=== PATIENT | female | born 1940 | race Caucasian/White ===

== ENCOUNTER 2017-10-01 06:12 | Inpatient (IN) | payer MEDICARE, OTHER ==
[~2017-10-01] VITALS: Ht 157.5 cm; Wt 79.0 kg
[2017-10-01] VITALS (18 sets, daily range): BP systolic 65–130; BP diastolic 22–71
[~2017-10-01 06:12] MED LIST: LABETALOL HCL200 MG PO; MAXZIDE-25 MG1 EACH PO; NORVASC5 MG PO; PREMARIN0.625 MG PO; TIROSINT50 MCG PO; ZOCOR20 MG PO
[2017-10-01 06:35] LABS: HEMATOCRIT 37.2 % (37.0-47.0); HEMOGLOBIN 12.1 gm/dL (12.0-15.0); MCH 27.3 pg (26.0-34.0); MCHC 32.7 g/dL (28.0-37.0); MCV 83.7 fL (80.0-100.0); MPV 9.3 fl. (7.2-11.1); RBC 4.44 mil/uL (4.20-5.00); RDW-CV 14.7 % (10.5-14.5); WBC 9.4 thou/uL (4.0-11.0)
[2017-10-01 06:47] LABS: CALCIUM 8.9 mg/dL (8.5-10.1); CREATININE 1.6 mg/dL (0.6-1.3); POTASSIUM 3.2 mmol/L (3.5-5.1)
[2017-10-01 14:02] LABS: BE -12.5 mmol/L (-2 to +3); HCO3 15.3 mmol/L (22.0-26.0); PCO2 42.5 mmHg (35.0-45.0); PO2 84.5 mmHg (75.0-100.0)
[2017-10-01 14:03] LABS: pH 7.174 (7.340-7.450)
[2017-10-01 14:14] LABS: HEMATOCRIT 27.8 % (37.0-47.0); HEMOGLOBIN 9.1 gm/dL (12.0-15.0); MCH 28.2 pg (26.0-34.0); MCHC 32.8 g/dL (28.0-37.0); MCV 86.1 fL (80.0-100.0); MPV 9.3 fl. (7.2-11.1); RBC 3.22 mil/uL (4.20-5.00); RDW-CV 15.2 % (10.5-14.5); WBC 5.1 thou/uL (4.0-11.0)
[2017-10-01 14:26] LABS: ALBUMIN 2.6 g/dL (3.4-5.0); CALCIUM 7.2 mg/dL (8.5-10.1); CREATININE 1.3 mg/dL (0.6-1.3); TOTAL BILIRUBIN 0.5 mg/dL (<0.1-1.0); TOTAL PROTEIN 4.1 g/dL (6.4-8.2)
--- NOTE | 2017-10-01 15:59 | EKG ---
[place] [address] ELECTROCARDIOGRAM REPORT Name: CLYDE BOB Room: [address] ADM IN .R.#: [id number] Admission: 10/01/17 Attend Phys: Norma Wang Discharge: Date of : 44 Report #: [id number] THIS REPORT FOR: //name// [facility] Test Date: 2017-10-01 Test Time: 06:48:34 Pat Name: CLYDE BOB Department: Room: [facility] Gender: F Spectroscopist: FREDERICK : 1940 Requested By: Ptee Conteh Order Number: [id number] Ismael MD: Everett Ryder Measurements Intervals [place] Rate: 65 P: 45 DC: 174 QRS: 20 QRSD: 112 T: 18 QT: 441 QTc: 459 Interpretive Statements Sinus rhythm Atrial premature complex Low voltage, precordial leads Anterior Q waves No previous ECG available for comparison Electronically Signed On 10-01-2017 15:59:02 MANAGER CONFIGURATION by Evreett Ryder [email or web address] <ELECTRONICALLY SIGNED> By: Everett Ryder MD, [facility] 10/01/17 1559 0648 Eveertt Ryder MD, [facility] /EPI
--- NOTE | 2017-10-01 16:18 | NUR ---
PATIENT ADMITTED TO THE ICU AT 1410 FROM PACU. ON PHENYLEPHRINE AT 60 MCG/MIN TO KEEP MAP >65. 1 LITER NS BOLUS INFUSING. LABS COMPLETED AND CALLED TO BOTH DR OVIEDO AND DR SWEENEY. NEW ORDERS FOR REPEAT LABS AT 1999. CVP READING 2 TO 5. PAIN RATED AT A 9 UPON ADMISSION, BUT AFTER PRN FENTANYL DECREASED TO 7. PATIENT DENIES FURTHER NEEDS. REFUSES REPOSITION AT THIS TIME. UPDATED ON PLAN OF CARE. DAUGHTER AT BEDSIDE NOW.
--- NOTE | 2017-10-01 18:48 | NUR ---
PATIENT PROGRESSING TOWARDS GOALS. ABLE TO BE TITRATED OFF PRESSORS AT THIS TIME. BLOOD PRESSURE STILL SOFT, CURRENTLY 96/56 WITH MAP OF 65. PAIN RATED AT 7-9 THROUGHOUT SHIFT. Q1H FENTNYL GIVEN X2. PATIENT REFUSING REPOSITIONS. EDUCATION GIVEN. NO OTHER CHANGES NOTED. LABS TO BE REDRAWN AT 1999, DR SWEENEY'S CELL PHONE NUMBER ON CHART ORDERS IF NEEDED.
[2017-10-01 20:07] LABS: HEMATOCRIT 25.7 % (37.0-47.0); HEMOGLOBIN 8.5 gm/dL (12.0-15.0); MCV 84.8 fL (80.0-100.0); MPV 9.1 fl. (7.2-11.1); RBC 3.03 mil/uL (4.20-5.00); RDW-CV 14.9 % (10.5-14.5); WBC 2.4 thou/uL (4.0-11.0)
[2017-10-01 20:15] LABS: CALCIUM 6.5 mg/dL (8.5-10.1); CREATININE 1.4 mg/dL (0.6-1.3); POTASSIUM 3.4 mmol/L (3.5-5.1)
[2017-10-01 22:41] LABS: BE -12.3 mmol/L (-2 to +3); HCO3 15.4 mmol/L (22.0-26.0); PCO2 42.9 mmHg (35.0-45.0)
[2017-10-01 22:43] LABS: pH 7.174 (7.340-7.450)
[2017-10-02] VITALS (24 sets, daily range): BP systolic 76–128; BP diastolic 30–71
--- NOTE | 2017-10-02 03:00 | NUR ---
RECIEVED REPOT AND ASSUMED CARE OF PT AT 1930. PT IN ICU POST OP OSTOMY PLACEMENT,HEMICOLECTOMY FLEX SIG AND LYSIS OF ADHESIONS. PT GIVEN PRN FENTANYL AT START OF SHIFT WITH NO RELIEF OF PAIN. DR PATEL MORALES. RECIEVED ORDER FOR PRN DILAUDED 0.2 - 0.3 MG IV Q 2 HRS PRN. DOSE GIVEN AFTER RECIEVING FROM PHARMACY AND AGAIN AT 2200. PT RESTLESS AND MOANING. PT VOICED NO PAIN RELIEF. DR PATEL MORALES AT 2224. DILAUDED INCREASED TO 0.5 MG IV Q 1 HR PRN. PT SLEPT UNTIL 0215 THEN AWAKE, CONFUSED. PT DISROBED PULLING AT ILEOSTOMY TUBE. PT STATED SHE WAS IN SEVERE PAIN. PRN DILAUDED GIVEN. PT PULLING AT ILEOSTOMY AND COLOSTOMY ATTEMPTING TO REMOVE. UNABLE TO ORIENT PT AND RESOLVE RESTLESSNESS. PAGENorma OVIEDO. PT PLACED IN BILATERAL SOFT WRIST RESTRAINTS TO MAINTAIN MONITORING EQUIPMENT, IV, ILEOSTOMY AND COLOSTOMY.
--- NOTE | 2017-10-02 05:02 | NUR ---
PT CALM AND COOPERATIVE. RESTRAINTS REMOVED, PT NO LONGER PULLING AT LINES, TUBES AND OSTOMY'S.
[2017-10-02 06:35] LABS: HEMATOCRIT 25.3 % (37.0-47.0); HEMOGLOBIN 8.4 gm/dL (12.0-15.0); MCH 28.8 pg (26.0-34.0); MCHC 33.4 g/dL (28.0-37.0); MCV 86.2 fL (80.0-100.0); MPV 10.7 fl. (7.2-11.1); RBC 2.93 mil/uL (4.20-5.00); RDW-CV 15.2 % (10.5-14.5)
[2017-10-02 06:37] LABS: WBC 10.8 thou/uL (4.0-11.0)
[2017-10-02 06:42] LABS: CALCIUM 6.2 mg/dL (8.5-10.1); POTASSIUM 3.2 mmol/L (3.5-5.1); TOTAL BILIRUBIN 0.7 mg/dL (<0.1-1.0); TOTAL PROTEIN 3.7 g/dL (6.4-8.2)
[2017-10-02 11:51] LABS: HCO3 17.6 mmol/L (22.0-26.0); PCO2 46.9 mmHg (35.0-45.0); PO2 65.5 mmHg (75.0-100.0); pH 7.191 (7.340-7.450)
[2017-10-02 13:35] LABS: HEMATOCRIT 23.4 % (37.0-47.0); HEMOGLOBIN 7.6 gm/dL (12.0-15.0); MCH 27.7 pg (26.0-34.0); MCHC 32.6 g/dL (28.0-37.0); MCV 85.1 fL (80.0-100.0); NUCLEATED RBCS 0 /100WBC; PLATELET COUNT* 192 thou/uL (150-400); RBC 2.75 mil/uL (4.20-5.00); RDW-CV 15.3 % (10.5-14.5); WBC 16.9 thou/uL (4.0-11.0)
[2017-10-02 13:41] LABS: CALCIUM 6.1 mg/dL (8.5-10.1); CREATININE 2.4 mg/dL (0.6-1.3); POTASSIUM 4.1 mmol/L (3.5-5.1)
[2017-10-02 14:24] LABS: ABSOLUTE LYMPHOCYTES 1.9 thou/uL (0.8-5.3); ABSOLUTE MONOCYTES 1.2 thou/uL (0.0-1.2); ABSOLUTE NEUTROPHILS 13.9 thou/uL (1.6-8.1); METAMYELOCYTES 6 %; MYELOCYTES 1 %
[2017-10-02 14:25] LABS: PLATELET ESTIMATE ADEQUATE
[2017-10-02 14:26] LABS: HYPOCHROMASIA Occasional; OVALOCYTES Occasional; POIKILOCYTOSIS 1+
[2017-10-02 14:27] LABS: ANISOCYTOSIS Occasional
--- NOTE | 2017-10-02 15:00 | NUR ---
CHART REVIEWED, SPOKE WITH NURSE. SPOKE WITH AT BEDSIDE. PT HAD ELECTIVE SURGERY YESTERDAY FOR RIGHT HEMICOLECTOMY. PT INTUBATED EARLIER TODAY. SAID THAT THE NURSES HAVE DONE A GOOD JOB EXPLAINING WHAT IS GOING ON, HE HAS NO QUESTIONS ABOUT PLAN OF CARE AT THIS TIME. EXPLAINED ROLE OF CASE MGT, WILL CONTINUE TO FOLLOW.
[2017-10-02 15:06] LABS: BE -9.3 mmol/L (-2 to +3); HCO3 15.1 mmol/L (22.0-26.0); PCO2 27.8 mmHg (35.0-45.0); pH 7.354 (7.340-7.450)
[2017-10-02 15:07] LABS: PO2 324.9 mmHg (75.0-100.0)
--- NOTE | 2017-10-02 19:48 | NUR ---
RECIEVED REPORT FROM RANJAN BARBOZA. ASSESSMENTS CHARTED. AFEBRILE. PT WAS DECLINING IN THE AM TODAY. PT INTUBATED AND SEDATED ON VERSED. LEVO AND TAMMIE INFUSING. TITRATIMG DOWN. LOW OUTPUT. 1 UNIT OF BLOOD GIVEN MY SHIFT. REPORT GIVEN TO RANJAN BARBOZA.
[2017-10-03] VITALS (15 sets, daily range): BP systolic 89–127; BP diastolic 48–79
[2017-10-03 05:11] LABS: ABSOLUTE MONOCYTES 0.8 thou/uL (0.0-1.2); ABSOLUTE NEUTROPHILS 16.8 thou/uL (1.6-8.1); BASOPHILS 0.1 %; HEMATOCRIT 27.7 % (37.0-47.0); HEMOGLOBIN 9.4 gm/dL (12.0-15.0); LYMPHOCYTES 5.6 %; MCH 28.3 pg (26.0-34.0); MCV 83.3 fL (80.0-100.0); MONOCYTES 4.2 %; MPV 9.8 fl. (7.2-11.1); NUCLEATED RBCS 0 /100WBC; PLATELET COUNT* 145 thou/uL (150-400); POLYS 90.1 %; RBC 3.33 mil/uL (4.20-5.00); WBC 18.7 thou/uL (4.0-11.0)
[2017-10-03 05:29] LABS: ALBUMIN 2.4 g/dL (3.4-5.0); CALCIUM 6.3 mg/dL (8.5-10.1); TOTAL BILIRUBIN 1.6 mg/dL (<0.1-1.0); TOTAL PROTEIN 4.4 g/dL (6.4-8.2)
[2017-10-03 05:47] LABS: POTASSIUM 3.1 mmol/L (3.5-5.1)
[2017-10-03 06:05] LABS: BE -5.5 mmol/L (-2 to +3); HCO3 16.6 mmol/L (22.0-26.0); PO2 110.4 mmHg (75.0-100.0); pH 7.477 (7.340-7.450)
--- NOTE | 2017-10-03 06:12 | NUR ---
PT. REMAINS SEDATED ON VENTILATOR WITH VERSED GTT. GRIMACES AT TIMES, FENTANYL GIVEN PER PRN ORDER. REMAINS ON LEVOPHED GTT AND NEOSYNEPHRINE GTT. SINUS TACHY MAJORITY OF SHIFT. COMPLETE BED BATH GIVEN. PT'S DAUGHTER IN LAW AT BEDSIDE BEGINNING SHIFT, MANY QUESTIONS ASKED, DR. SWEENEY NOTIFIED BY THIS RN, OFFERED TO SPEAK TO CHANEL, PTS DAUGHTER IN LAW, TO UPDATE ON PT'S SURGERY AND PROGRESS. ALL QUESTIONS ANSWERED. CHANEL HAS CALLED X3 FOR UPDATES THIS SHIFT, UPDATED ACCORDINGLY. WILL CONTINUE TO MONITOR.
--- NOTE | 2017-10-03 07:16 | CON ---
[facility] [address] [place] [address] CONSULTATION Name: CLYDE BOB Room: [address] IN .R.#: [id number] Admission: 10/01/17 Attend Phys: Pete Conteh Discharge: Date of : 44 Report #: [id number] THIS REPORT FOR: //name// CC: Pete Stevens MD DATE OF SERVICE: 10/02/2017 She is located in ICU 7. ATTENDING PHYSICIAN: Pete Conteh MD INDICATION FOR CONSULTATION: Acute hypoxic respiratory failure, metabolic acidosis, sepsis syndrome postoperatively. CLINICAL SUMMARY: The patient is a 76-year-old female, nonsmoker, nondrinker, who was admitted to the hospital yesterday. She underwent a laparotomy and appendectomy and was going to undergo an appendectomy. The patient had a right colon mass. It appeared to be a sigmoid mass. The patient had several feet of colon resected including the sigmoid and she had a previous ileal anastomosis, which appeared to be dusky and so that was resected also. She was then closed up and she was extubated. The patient has been septic and shocky all night and she has had metabolic acidosis with poor urine output and she has been on a bicarbonate drip, also has received some IV albumin. She has oliguric renal failure at this time. No prior history of COPD or significant chronic kidney disease that I am aware of. I have discussed this with the patient and her at the bedside. The patient's states that he wishes for her to be intubated and undergo dialysis if needed. I believe he is durable power of senior attorney. PAST MEDICAL ILLNESSES: She has had colonic mass. She has had acute encephalopathy and abdominal sepsis and shock. She had laparotomy with a colon resection on 10/01/2017. PRIOR SURGICAL HISTORY: Includes hysterectomy in 1988, bladder removed with an internal pouch and catheter to drain urine since 1992, right total knee replacement in 2012, left total knee replacement in 2013, previous colonoscopy. She has had breast biopsies x 2, hypertension, hypothyroidism. ALLERGIES: She has had allergies or intolerance to TAPE which sometimes give her blisters. MEDICATIONS: She was on conjugated estrogen, Premarin 0.625 mg daily, levothyroxine 50 mcg p.o. daily, triamterene/hydrochlorothiazide, Maxzide [address] [place] [address] CONSULTATION Name: CLYDE BOB Room: [address]#: [id number] Admission: 10/01/17 Attend Phys: Pete Conteh Discharge: Date of : 44 Report #: [id number] daily, amlodipine 5 mg daily, labetalol 200 mg or Trandate 200 mg b.i.d., simvastatin 20 mg p.o. daily. She currently is on hold on her pressors and she is on IV Levophed and IV Akash-Synephrine at high dose to support her blood pressure, also on IV bicarbonate drip. She is also on IV Zosyn to cover for abdominal sepsis and infection. She has not received IV steroids yet. FAMILY HISTORY: Negative for premature cardiopulmonary disease. SOCIAL HISTORY: The patient is a nonsmoker, nondrinker, lives with her . I believe he is the durable power of senior attorney. REVIEW OF SYSTEMS: A 14-point review of systems reviewed and negative per the and the only pertinent positives were noted in HPI. PHYSICAL EXAMINATION: GENERAL: An ill-appearing 76-year-old female, O2 sats are relatively low either on 6 or 8 liters and then a 50% Ventimask with 6 liters . She varies between 88 and 91%. She is still somewhat confused. She can answer some simple questions. VITAL SIGNS: Blood pressure is 105/53 on 2 pressors at this time, O2 sat is 92% on 50% Ventimask and 6 liters, respirations are 14-18, slightly labored. Heart rate is 90 and respirations again were 14-16, slightly labored and temperature was 37 degrees. She is 5 feet 3 inches tall, weight 72 kilograms or 158 pounds, BMI is 29. HEENT: Unremarkable. Nares and pharynx otherwise are clear. NECK: Supple without nodes. Neck veins are flat. No increase of jugular venous pressure is noted. CHEST: Shows a few rhonchi at this time in both bases, but no wheeze or crackles. CARDIOVASCULAR: Regular rate and rhythm without murmur, gallop or rub. Heart rate is 91. ABDOMEN: Soft, without masses or megaly. EXTREMITIES: Without cyanosis, clubbing or edema. Her extremities are cool to touch. Peripheral pulses 0-1+. She will move all 4 extremities to commands weakly. LABORATORY DATA: From 4:00 this morning shows hemoglobin 8.4, white count 10,800, platelets are 225,000. ABGs late last night shows a pO2 of 62, a pH of 7.17, pCO2 is 43. Previous pO2 is 42 with a bicarbonate of 16 and a rate of 87%. Chest x-ray shows bibasilar atelectasis and no definite CHF. Chemistry also obtained this morning shows a sodium 144, potassium 3.2, bicarb is 116, carbon dioxide is 20, BUN is 27, creatinine is 2.0 and GFR is 24 at this time. Glucose is 145, calcium is 6.2. LFTs were low and albumin is low at 2.8. Prealbumin was low at 13.6. IMPRESSION: Abdominal sepsis, probably related to ischemic bowel, [place] [address] CONSULTATION Name: CLYDE BOB Room: [address] IN [facility]#: [id number] Admission: 10/01/17 Attend Phys: Pete Conteh Discharge: Date of : 44 Report #: [id number] have had right colon resection. CVP is running about 12 at this time and we will continue to monitor that. She is relatively anuric with only about 50 mL of urine out for the last 12 hours. IMPRESSION: Abdominal sepsis after surgery, probably has ischemic bowel and again sigmoid colon mass and also could have a right sigmoid mass lesion again which was resected with the idea of keeping her out of sepsis syndrome. PLAN: We will follow the patient and get some blood gases this afternoon to see if she has persistent acidosis or hypoxemia. I really think she is going to need to get intubated sometime this afternoon. I think we can correct her metabolic acidosis better that way with a compensatory respiratory alkalosis on the ventilator and see if that does not help her out somewhat. May keep her airway and her oxygenation status improved. Then we will defer to renal if they need to give more fluids or what we are going to need to do in the near future. This has been 37-minute critical care consult. Discussed this with her at the bedside. He wishes full aggressive therapy and intubation and dialysis if needed. Thanks again for allowing us to participate in this lady's care. She is critically ill. <ELECTRONICALLY SIGNED> By: Mare Ramirez MD 10/03/17 0716 1103 2024Atray Bonilla MD /nt
--- NOTE | 2017-10-03 14:22 | NUR ---
RECEIVED REPORT FROM RANJAN SAENZ. ASSESSMENT CHARTED. AFEBRILE. PT ONLY HAS LEVO GTT INFUSING NOW. CRRT RUNNING. PT TOLERATING WELL. DR SWEENEY SPOKE WITH FAMILY ABOUT PROCEDURE. FAMILY UPDATED. WILL CONTINUE TO MONITOR.
--- NOTE | 2017-10-03 14:33 | NUR ---
WOUND CARE NOTE: WAS ASKED TO SEE PATIENT RELATED TO DISCOLORATION TO NIKIA-ANAL AREA AND LEFT LABIA. PATIENT PRESENTS WITH DISCOLORATION TO HER NIKIA-ANAL AREA EXTENDING ANTERIORLY TO HER LEFT LABIA MAJORA. AREA APPEARS ECCHYMOTIC. DOES NOT DANA, IS FIRMER THAN SURROUNDING TISSUES. PARTIAL THICKNESS BREAKDOWN NOTED TO THE RIGHT SIDE, NIKIA-ANAL. BARIER OINTMENT WAS PLACED AND PATIENT WAS TURNED TO RIGHT SIDE, OFFLOADED APPROPRIATELY BY PATIENT'S RN. UNSURE OF ETIOLOGY, PATIENT INTUBATED AND SEDATED AT THIS TIME. UNABLE TO EDUCATE OR OBTAIN HISTORY. RECOMMEND LIMIT HOB <30 DEGREES CONTINUE WITH ARJUN FUNCTION LIMIT LAYERS OF LINEN UNER PATIENT SIDE TO SIDE TURNING ONLY BARRIER OINTMENT BID AND PRN
[2017-10-03 16:51] LABS: HEMATOCRIT 26.8 % (37.0-47.0); HEMOGLOBIN 9.2 gm/dL (12.0-15.0); MCH 28.5 pg (26.0-34.0); MCHC 34.4 g/dL (28.0-37.0); MCV 82.8 fL (80.0-100.0); MPV 9.7 fl. (7.2-11.1); RBC 3.24 mil/uL (4.20-5.00); RDW-CV 15.3 % (10.5-14.5)
[2017-10-03 17:02] LABS: CALCIUM 6.9 mg/dL (8.5-10.1); CREATININE 2.6 mg/dL (0.6-1.3); MAGNESIUM 1.2 mg/dL (1.8-2.4); POTASSIUM 3.2 mmol/L (3.5-5.1)
--- NOTE | 2017-10-03 21:30 | NUR ---
VERSED TURNED OFF FOR SEDATION VACATION.
--- NOTE | 2017-10-03 22:00 | NUR ---
VERSED URNED BACK ON PT WAS DESATING.
[2017-10-04] VITALS: BP 100/65
[2017-10-04 02:00] VITALS: BP 106/65
[2017-10-04 04:00] VITALS: BP 103/72
[2017-10-04 04:40] LABS: ABSOLUTE LYMPHOCYTES 1.1 thou/uL (0.8-5.3); ABSOLUTE MONOCYTES 0.5 thou/uL (0.0-1.2); ABSOLUTE NEUTROPHILS 15.5 thou/uL (1.6-8.1); BASOPHILS 0.1 %; EOSINOPHILS 0.2 %; HEMATOCRIT 24.3 % (37.0-47.0); HEMOGLOBIN 8.4 gm/dL (12.0-15.0); LYMPHOCYTES 6.5 %; MCH 28.2 pg (26.0-34.0); MCHC 34.4 g/dL (28.0-37.0); MONOCYTES 2.8 %; NUCLEATED RBCS 0 /100WBC; PLATELET COUNT* 120 thou/uL (150-400); POLYS 90.4 %; RBC 2.97 mil/uL (4.20-5.00); RDW-CV 15.2 % (10.5-14.5); WBC 17.2 thou/uL (4.0-11.0)
[2017-10-04 05:04] LABS: ALBUMIN 1.9 g/dL (3.4-5.0); CALCIUM 7.1 mg/dL (8.5-10.1); CREATININE 2.4 mg/dL (0.6-1.3); MAGNESIUM 1.2 mg/dL (1.8-2.4); TOTAL BILIRUBIN 2.1 mg/dL (<0.1-1.0); TOTAL PROTEIN 4.1 g/dL (6.4-8.2)
[2017-10-04 05:07] LABS: POTASSIUM 2.8 mmol/L (3.5-5.1)
[2017-10-04 05:18] LABS: BE -4.4 mmol/L (-2 to +3); HCO3 17.1 mmol/L (22.0-26.0); PCO2 21.6 mmHg (35.0-45.0); PO2 85.1 mmHg (75.0-100.0); pH 7.516 (7.340-7.450)
[2017-10-04 05:45] LABS: PREALBUMIN 8.6 mg/dL (18.0-35.7)
[2017-10-04 05:48] VITALS: BP 106/65
--- NOTE | 2017-10-04 06:10 | NUR ---
NO CHANGE IN PROGRESS. ASSESSMENT AND VS OBTAINED THROUGH OUT THE NIGHT, SEE CHARTING. LEVOPHED WAS STARTED AGAIN FOR ABOUT 2 HRS AND THEN BP WAS BACK UP. EMERGENCY MANAGER ON AND TRACING ST. PT REMAINS ON A VENT AT ORDERED SETTINGS. PT IS SEDATED WITH VERSED. VERSED HAS KEPT THE PT SEDATED. PT HAS A SKIN TEAR ON HER RIGHT CHEST BY HER LINE DRESSING WAS THERE AT THE START OF MY SHIFT. PIC WAS TAKEN AND DOCUMENTED. PT HAD 600 OF GREEN URINE. 50 OUT OF HER ILIEOSTOMY. ILIEOSTOMY WAS CLEANED OUT WITH SOAPY WATER.
--- NOTE | 2017-10-04 07:30 | NUR ---
0730 ASSUMED CARE OF PT. PLEASE SEE DOCUMENTED ASSESSMENT. PT SEDATED ON VENT. VERSED GTT. POSSIBLE CRRT TODAY. OFF LEVO GTT. ART LINE B/P CURRENTLY WNL. GOALS THIS SHIFT ARE TO: MAINTAIN HEMODYNAMIC STABILITY OFF PRESSORS, PROMOTE COMFORT/REST, START NUTRITION (TPN?), AND SKIN/WOUND CARE.
[2017-10-04 07:36] LABS: HEPATITIS B SURFACE AG Negative (Negative)
--- NOTE | 2017-10-04 07:45 | NUR ---
VERSED GTT OFF FOR SEDATION VACATION.
--- NOTE | 2017-10-04 07:55 | NUR ---
LEVOPHED GTT RESTARTED D/T ART LINE PRESSURES AT 76/51 W/MAP AT 59.
--- NOTE | 2017-10-04 09:36 | NUR ---
SEDATION VACATION CONTINUES. PT WILL GRIMACE TO PAIN, BUT NOT OPEN EYES OR FOLLOW COMMANDS. DR. BARRETO IN TO SEE PT. MG AND K CURRENTLY BEING REPLACED PER NEPHROLOGY ORDERS.
--- NOTE | 2017-10-04 12:00 | NUR ---
WHEN UPDATING DR. SWEENEY ON PT, INFORMED HIM THAT HIMS WANTED TO START HEPARIN SQ. PER DR. SWEENEY, SURGEON, DO NOT START HEPARIN SQ DUE TO BLEEDING RISK.
--- NOTE | 2017-10-04 12:00 | NUR ---
UPDATED DR. SWEENEY. NEW ORDERS RCV'D. , DAUGHTER, AND GRANDDAUGHTER HAVE VISITED. REMAINS OFF VERSED GTT. GRIMACING TO PAIN/ORAL CARE, BUT STILL NOT FOLLOWING COMMANDS AT THIS TIME.
--- NOTE | 2017-10-04 12:35 | NUR ---
SEDATION VACATION ENDED AT 1230 PT'S HR NOW IN THE LOW 130'S AND ART LINE B/P CLIMBING INTO THE 130'S SYSTOLIC.
--- NOTE | 2017-10-04 12:55 | CON ---
[facility] [address] [place] [address] CONSULTATION Name: CLYDE BOB Room: [address] IN .R.#: [id number] Admission: 10/01/17 Attend Phys: Pete Conteh Discharge: Date of : 44 Report #: [id number] THIS REPORT FOR: //name// CC: Pete Stevens DATE OF SERVICE: 10/03/2017 ATTENDING PHYSICIAN: Dr. Conteh. REASON FOR EVALUATION: Severe sepsis. HISTORY OF PRESENT ILLNESS: Chart reviewed, the patient examined. This is a 76-year-old with history of hypertension, previous cystectomy, who was felt to have a sigmoid mass that was benign. She was scheduled electively to undergo partial resection, operative evaluation failed to find the mass; however, due to the takedown of the adhesions, was felt to have had compromised blood supply to the ileum, ended up with a right hemicolectomy with ileostomy. Postop course has been complicated by respiratory failure, now intubated on an urgent basis and multiorgan dysfunction, is scheduled undergo dialysis today as well. She is on pressor support due to hemodynamic instability. She has been afebrile, has a progressive leukocytosis as well. She was started empirically on broad-spectrum antibiotic therapy with piperacillin, tazobactam as well as vancomycin. At this point, she is sedated on the vent. ALLERGIES: TAPE. MEDICATIONS: Include vancomycin, Zosyn. She is on phenylephrine, norepinephrine, pantoprazole, midazolam, insulin. PAST MEDICAL HISTORY: As described above. Bilateral knee replacements, hysterectomy, hypothyroidism. SOCIAL HISTORY: Nonsmoker, no ethanol. FAMILY HISTORY: Noncontributory. REVIEW OF SYSTEMS: Not obtainable. PHYSICAL EXAMINATION: GENERAL: She appears quite ill. She is supine, has multiple tubes in place. She is not responsive, appears acute and chronically ill. VITAL SIGNS: Temperature 98.4, pulse 106, respirations 20, blood pressure 99/58. SKIN: Warm, dry, no rashes. HEENT: [place] [address] CONSULTATION Name: CLYDE BOB Room: [address] IN [facility]#: [id number] Admission: 10/01/17 Attend Phys: Pete Conteh Discharge: Date of : 44 Report #: [id number] LUNGS: Scattered coarse breath sounds. HEART: Regular. Borderline tachycardic. I do not appreciate a murmur. ABDOMEN: Otherwise, soft. There are no overt peritoneal signs or rigidity. GENITOURINARY: Deferred. RECTAL: Deferred. LABORATORY DATA: Chest x-ray, persistent bilateral lower lobe infiltrates, small effusions. CRP elevated at 314.4. ABGs: pH 7.477, pCO2 of 23.0, pO2 of FiO2 of 40%. Electrolytes: Sodium 142, potassium 3.1, chloride 107, bicarbonate is 21, anion gap of 14, BUN and creatinine 37 and 3.0, glucose of 215. AST of 64, ALT of 11, total protein of 4.4. Albumin of 2.4. Estimated GFR of 15. Total bilirubin 1.6. Prealbumin of 10.7. CBC: White count of 18.7, H and H 9.4 and 27.7, platelets of 145. It is notable white count had dropped postoperatively to 2.4, rebounded fairly dramatically. Lactic acid at 1.6. Path is pending. ASSESSMENT: Septic shock, presumably due to intraabdominal process, thus far cultures have been unrevealing. I agree with broad-spectrum antimicrobial therapy. Currently, she is in clinical deterioration postoperatively at this point. We will add antifungal as well. If she develops fevers, I will go ahead and do some cultures, although she is fairly well covered for bacterial etiologies, may need repeat imaging at some point if continues to become quite critically ill. Thank you, we will follow. <ELECTRONICALLY SIGNED> By: Rito Akers MD 10/04/17 1255 1545 [id number] Akers MD /nt
--- NOTE | 2017-10-04 13:05 | NUR ---
WOUND CARE NOTE: REASSESSMENT OF DISCOLORATION. BELIEVE AREA TO BE ECCHYMOSIS. DO NOT BELIEVE THIS TO BE A PRESSURE ULCER. AREA IS FADING IN COLOR AND APPEARS MOTTLED VERSUS A SOLID AREA OF DESTRUCTION.
--- NOTE | 2017-10-04 17:30 | NUR ---
COLOSTOMY APPLIANCE CHANGED. WHILE CLEANING STOMA, NOTICED A SMALL PORTION OF THE STOMA IS BEEFY RED, BUT THERE IS ALSO A DARK BROWN ?FILM/CLOT ON THE STOMA. SURGERY PAGED TO REPORT FINDINGS. COLOSTOMY CONTINUES TO PRODUCE LIQUID GREENISH COLORED STOOL.
--- NOTE | 2017-10-04 17:36 | S ---
[facility] [address] [place] [address] SURGICAL PATH RPT PROCEDURE Name: CLYDE SWEENEY Room: [address] IN [facility].#: [id number] Admission: 10/01/17 Date of : 44 Discharge: Report #: [id number] Path Case #: [id number] PATHOLOGY REPORT COLLECTION DATE: 10/01/2017 RECEIVED DATE: 10/01/2017 SUBMITTING PHYS: Dr. Pete Conteh OTHER PHYS: Dr. Frederick Stevens SPECIMEN(S) RECEIVED: A.Ileum and colon * * * * * * * * * * * * FINAL DIAGNOSIS: A. Ileum and colon: - Segment of benign ileum with intact anastomosis to benign colonic segment showing mucosal congestion and fresh hemorrhage in pericolic fat, and four segments of benign small intestine, one with fresh transmural defect and all bowel segments with prominent serosal fibrous adhesions. (TRANG:stefano; 10/04/2017) PATHOLOGIST: Konrad Gilbert M.D. REPORT ELECTRONICALLY SIGNED BY: Konrad Gilbert M.D. DATE/TIME: 10/04/2017 17:35 * * * * * * * * * * * * GROSS PATHOLOGY: The specimen is received in formalin, labeled "Clyde Sweeney, ileum and colon," and consists of a segment of small bowel and colon consisting of ileum anastomosed to approximately 15 cm of colon measuring 34.0 cm in overall length and ranging from 1.9 cm to 4.0 cm in diameter. There is attached pericolic fat measuring up to 6.5 cm. The serosal surface is holder with marked areas of fibrous adhesions. Both ends of the segment are stapled closed. There are numerous areas where the small bowel serosal wall appears markedly thinned. The segment is opened to reveal a pink-holder colon mucosa with normal folds. The bowel mucosa is pink-holder with slightly thinned folds. No masses or lesions are identified. Sectioning through the attached pericolic fat reveals no grossly identifiable lymph nodes. Biotechnician sections are submitted as follows: A1: Stapled small bowel resection margin segment 1 en face A2: Stapled colon resection margin segment 1 en face A3: Section to include small bowel, anastomosis, and colon A4: Bowel mucosa showing thin wall A5: Biotechnician unremarkable [place] [address] SURGICAL PATH RPT PROCEDURE Name: CLYDE SWEENEY Room: [address] IN [facility]#: [id number] Admission: 10/01/17 Date of : 44 Discharge: Report #: [id number] Path Case #: [id number] A16: Biotechnician sections adjacent to anastomosis Also received are 4 additional segments of small bowel measuring 15.5 x 1.9 cm (segment 2), 11.1 x 1.5 cm (segment 3), 5.5 x 2.0 cm (segment 4), and 3.4 x 2.3 cm (segment 5). The serosal surfaces of each are holder-brown with marked fibrous adhesions and serosal wall thinning. The attached fat measures up to 3.1 cm. Segments 2 and 3 have open resection margins while segments 4 and 5 have stapled resection margins. Segment 4 has a defect (grossly appears intraoperative exposing the mucosa) near one stapled margin measuring 0.8 cm in greatest dimension. Opening each segment reveals no masses or lesions. The mucosa of each shows normal folds with the exception of the areas of serosal thinning where the mucosa is flattened. Sectioning through the attached fat reveals no grossly identifiable lymph nodes. Biotechnician sections are submitted as follows: A6: Segment 2 resection margins en face A7: Segment 2 construction sales representative of thin mucosa A8: Segment 2 construction sales representative of normal mucosa A9: Segment 3 resection margins en face A10: Segment 3 construction sales representative mucosa A11: Segment 4 stapled resection margins en face A12: Segment 4 serosal defect A13: Segment 4 construction sales representative of normal mucosa A14: Segment 5 stapled resection margins en face A15: Segment 5 construction sales representative mucosa (SDY; 10/02/2017) CLINICAL HISTORY: Benign neoplasm of sigmoid colon INITIAL CPT CODE(S): A; 93504 Professional services performed by [facility] at [facility], [address] [place] [id number]. Technical services performed by [facility] at [address] [place] [address], [address], [place] [address]. [facility] [address] [place] [address] PHONE: [phone] DIRECTOR: Dexter Patel M.D. * * * END OF REPORT * * *
--- NOTE | 2017-10-04 18:50 | NUR ---
UPDATED SURGEON ON COLOR OF STOMA. NO NEW ORDERS.
--- NOTE | 2017-10-04 19:06 | NUR ---
OUTCOME SUMMARY: PROGRESSING TOWARDS GOALS. CREATININE TRENDING DOWNWARD. NO CRRT TODAY. ABLE TO TITRATE OFF LEVOPHED THIS AFTERNOON, BUT LEVO BACK ON AFTER PAIN MED ADMINISTERED. POSSIBLE SLED/HEMO DIALYSIS TOMORROW DEPENDING ON LABS. K AND MG REPLACED. FAMILY HAS VISITED. FIO2 REMAINS AT 45%. 350 ML URINE OUTPUT THIS SHIFT! MIDLINE INCISION C/D/I. EXTENSIVE SEDATION VACATION GIVEN THIS AM AND PT WILL MOVE UPPER/LOWER EXTREMITIES, BUT PT WOULD NOT FOLLOW COMMANDS THIS SHIFT. OVERALL PROGNOSIS: FAIR.
--- NOTE | 2017-10-04 19:15 | NUR ---
SEDAION VACATION STARTED. VERSED STOPPED. WILL CON'T TO MONITOR
[2017-10-04 20:00] VITALS: BP 104/60
[2017-10-04 22:00] VITALS: BP 96/55
[2017-10-05] VITALS (10 sets, daily range): BP systolic 90–167; BP diastolic 54–98
[2017-10-05 06:05] LABS: HEMATOCRIT 26.3 % (37.0-47.0); HEMOGLOBIN 8.8 gm/dL (12.0-15.0); MCHC 33.4 g/dL (28.0-37.0); MCV 83.9 fL (80.0-100.0); MPV 9.4 fl. (7.2-11.1); NUCLEATED RBCS 0 /100WBC; PLATELET COUNT* 145 thou/uL (150-400); RBC 3.13 mil/uL (4.20-5.00); RDW-CV 15.7 % (10.5-14.5); WBC 24.5 thou/uL (4.0-11.0)
[2017-10-05 06:14] LABS: ALBUMIN 1.8 g/dL (3.4-5.0); CALCIUM 7.8 mg/dL (8.5-10.1); CREATININE 2.7 mg/dL (0.6-1.3); POTASSIUM 3.2 mmol/L (3.5-5.1); TOTAL BILIRUBIN 1.9 mg/dL (<0.1-1.0); TOTAL PROTEIN 4.8 g/dL (6.4-8.2)
[2017-10-05 06:20] LABS: PREALBUMIN 8.1 mg/dL (18.0-35.7)
[2017-10-05 06:24] LABS: MAGNESIUM 1.8 mg/dL (1.8-2.4); PHOSPHORUS* 3.1 mg/dL (2.5-4.9)
--- NOTE | 2017-10-05 06:26 | NUR ---
SOME PROGRESSION TOWARDS GOAL. ASSESSMENT AND VS OBTAINED, SEE CHARTING. DIRECTOR OF MARKET INTELLIGENCE TRACING SR. PT HAD A SEDATION VACATION FROM [id number]. STARTING AT 4 PT'S BP WAS HIGH AND STAYED HIGH. VERSED TURNED BACK ON. PT HAD A SEDATION VACATION FROM [id number]. REDRESSED DRESSING SMALL AMT OF DRAINAGE FROM THE MIDLINE INCISION.
[2017-10-05 06:43] LABS: ABSOLUTE LYMPHOCYTES 2.2 thou/uL (0.8-5.3); ABSOLUTE MONOCYTES 0.5 thou/uL (0.0-1.2); ABSOLUTE NEUTROPHILS 21.8 thou/uL (1.6-8.1); ANISOCYTOSIS 1+; PLATELET ESTIMATE DECREASED; POIKILOCYTOSIS 1+
--- NOTE | 2017-10-05 11:00 | NUR ---
PT REMAINS SEDATED ON VENT. SPOKE WITH AT THE BEDSIDE. HE SAID HE HAS NO QUESTIONS ABOUT PLAN OF CARE, NURSING HAS DONE A GREAT JOB IN KEEPING HIM INFORMED. HE AND HIS FAMILY MET WITH DR. SWEENEY AGAIN SEVERAL DAYS AGO SO HE COULD GO OVER WITH THEM AGAIN HIS FINDINGS IN SURGERY. CASE MGT TO CONTINUE TO FOLLOW.
--- NOTE | 2017-10-05 14:47 | NUR ---
Pt will need goal tube feeding rate of 35ml/hr and 3 packets of beneprotein per day in a water flush
--- NOTE | 2017-10-05 19:32 | NUR ---
PT REMAINS SEDATED ON VENT.PT TURNED THROUGH SHIFT. FREQUENT ORAL CARE GIVEN. PT OUTPUT 1200 ML. PT HEART RATE BETTER SINCE LABETALOL GIVEN. FENTANYL GTT TO BE STARTED FOR COMFORT. INSULIN GIVEN TIMES 2. ART AND CVP LINES CHANGED.SHIFT REPORT GIVEN. PT HAD ALOT OF VISITORS THIS SHIFT.BENEPROTIEN STARTED THIS SHIFT PT TO CONTIUE TID THROUGH O/G TUBE.PT IS PROGRESSING SLOWLY TOWARDS GOALS.
--- NOTE | 2017-10-05 21:00 | NUR ---
FEEDING PUMP TURNED OFF DUE TO PUMP HAS A MALFUNCTION. AWAITING FOR HS TO BRING ANOTHER ONE DOWN.
[2017-10-06] VITALS (10 sets, daily range): BP systolic 86–145; BP diastolic 50–80
[2017-10-06 06:00] LABS: PREALBUMIN 8.9 mg/dL (18.0-35.7)
[2017-10-06 06:11] LABS: ALBUMIN 1.5 g/dL (3.4-5.0); CALCIUM 7.8 mg/dL (8.5-10.1); CREATININE 2.7 mg/dL (0.6-1.3); MAGNESIUM 1.9 mg/dL (1.8-2.4); POTASSIUM 3.1 mmol/L (3.5-5.1); TOTAL BILIRUBIN 1.6 mg/dL (<0.1-1.0); TOTAL PROTEIN 4.5 g/dL (6.4-8.2)
[2017-10-06 06:24] LABS: ABSOLUTE LYMPHOCYTES 1.7 thou/uL (0.8-5.3); ABSOLUTE MONOCYTES 1.6 thou/uL (0.0-1.2); ABSOLUTE NEUTROPHILS 13.3 thou/uL (1.6-8.1); BASOPHILS 0.1 %; EOSINOPHILS 0.1 %; HEMATOCRIT 25.5 % (37.0-47.0); HEMOGLOBIN 8.6 gm/dL (12.0-15.0); LYMPHOCYTES 10.2 %; MCH 28.2 pg (26.0-34.0); MCHC 33.6 g/dL (28.0-37.0); MCV 83.9 fL (80.0-100.0); MONOCYTES 9.6 %; MPV 9.3 fl. (7.2-11.1); NUCLEATED RBCS 0 /100WBC; PLATELET COUNT* 154 thou/uL (150-400); RBC 3.04 mil/uL (4.20-5.00); RDW-CV 15.8 % (10.5-14.5); WBC 16.6 thou/uL (4.0-11.0)
[2017-10-06 10:09] LABS: BE -5.3 mmol/L (-2 to +3); HCO3 18.8 mmol/L (22.0-26.0); PCO2 32.2 mmHg (35.0-45.0); PO2 103.1 mmHg (75.0-100.0); pH 7.384 (7.340-7.450)
--- NOTE | 2017-10-06 11:00 | NUR ---
pt had tube trial with daughter in law present . pt has been off versed and fentanyl also placed tube feeding in hold. pt tube trialed fro appx 30 mins. pt became slightly tachycardic and hypertensive. after tube trial sedation and tube restarted.abgs drawn with results to be called to pulm.
--- NOTE | 2017-10-06 15:00 | NUR ---
potassium 3.6 no further suplament needed per order.
--- NOTE | 2017-10-06 18:05 | NUR ---
PT REMIANS SEDATED ON VENT. PT TURNED THROUGH SHIFT FREQUENT MOUTH CARE WITH MOUTH MOISTURIZER. CVP AND ART LINE MONITORING. PT HAS HAD VISITORS THROUGH OUT SHIFT.PULM PLANS ON TUBE TRIALING IN AM AGAIN.POOR URINE OUTPUT MOST OF DAY THEN ABOUT 1400 PT STARTED TO PRODUCE URINE AGAIN.PT IS LSOWLY PROGRESSING TOWARDS GOALS.
[2017-10-07] VITALS (14 sets, daily range): BP systolic 89–151; BP diastolic 45–90
[2017-10-07 04:30] LABS: ABSOLUTE LYMPHOCYTES 2.4 thou/uL (0.8-5.3); ABSOLUTE MONOCYTES 2.5 thou/uL (0.0-1.2); ABSOLUTE NEUTROPHILS 10.7 thou/uL (1.6-8.1); BASOPHILS 0.1 %; EOSINOPHILS 0.1 %; HEMATOCRIT 24.2 % (37.0-47.0); LYMPHOCYTES 15.5 %; MCH 27.9 pg (26.0-34.0); MCHC 33.1 g/dL (28.0-37.0); MCV 84.3 fL (80.0-100.0); MONOCYTES 16.2 %; MPV 9.6 fl. (7.2-11.1); NUCLEATED RBCS 0 /100WBC; PLATELET COUNT* 170 thou/uL (150-400); POLYS 68.1 %; RBC 2.87 mil/uL (4.20-5.00); RDW-CV 15.6 % (10.5-14.5); WBC 15.8 thou/uL (4.0-11.0)
[2017-10-07 04:44] LABS: PREALBUMIN 12.7 mg/dL (18.0-35.7)
[2017-10-07 05:01] LABS: ALBUMIN 1.5 g/dL (3.4-5.0); CALCIUM 7.9 mg/dL (8.5-10.1); CREATININE 2.8 mg/dL (0.6-1.3); PHOSPHORUS* 1.9 mg/dL (2.5-4.9); TOTAL BILIRUBIN 1.2 mg/dL (<0.1-1.0); TOTAL PROTEIN 4.3 g/dL (6.4-8.2)
[2017-10-07 05:31] LABS: POTASSIUM 2.9 mmol/L (3.5-5.1)
[2017-10-07 13:23] LABS: CALCIUM 7.8 mg/dL (8.5-10.1); CREATININE 2.8 mg/dL (0.6-1.3); MAGNESIUM 1.8 mg/dL (1.8-2.4); PHOSPHORUS* 1.6 mg/dL (2.5-4.9); POTASSIUM 3.1 mmol/L (3.5-5.1)
--- NOTE | 2017-10-07 19:03 | NUR ---
ART LINE D/C'D.PT TURNED THROUGH SHIFT. RESDIUALS HIGH DUE TO EVERY THREE HOUR H2O PUSHES. PT KEEPS LEAKING URINE FROM BLADDER POUCH ENTRANCE ON ABD. ASKED FAMILY IF SHE EVER HAD PROBLEMS PRIOR, FAMILY STATED THAT SHE IS VERY PRIVATE PERSON AND WOULD NOT SAY IF SHE HAD PROBLEMS. PT TOPLERATING VENT.TUBE TRIAL ORDERED FOR AM. KPHOS REMANS INFUSING. FAMILY HAS LEFT FOR THE EVENING.
--- NOTE | 2017-10-07 23:38 | NUR ---
SEDATION VACATION STARTED. VERSED AND FENTANYL STOPPED. WILL CON'T MONITOR.
[2017-10-08] VITALS (21 sets, daily range): BP systolic 68–153; BP diastolic 40–89
--- NOTE | 2017-10-08 02:58 | NUR ---
SEDATION VACATION STILL GOING ON. PT MOVES ARMS A LITTLE BUT DOESN'T WAKE UP
--- NOTE | 2017-10-08 04:41 | NUR ---
SEDATION VACATION STOPPED DUE TACHYCARDIA AND DESATURATIONS.
[2017-10-08 05:11] LABS: HEMATOCRIT 28.5 % (37.0-47.0); HEMOGLOBIN 9.4 gm/dL (12.0-15.0); MCH 27.5 pg (26.0-34.0); MCV 83.3 fL (80.0-100.0); MPV 9.9 fl. (7.2-11.1); NUCLEATED RBCS 0 /100WBC; PLATELET COUNT* 230 thou/uL (150-400); RBC 3.42 mil/uL (4.20-5.00); RDW-CV 15.6 % (10.5-14.5); WBC 24.4 thou/uL (4.0-11.0)
[2017-10-08 05:13] LABS: PREALBUMIN 17.4 mg/dL (18.0-35.7)
--- NOTE | 2017-10-08 05:17 | NUR ---
MINIMAL PROGRESSION TOWARDS GOALS. ASSESSMENT AND VS OBTAINED, SEE CHARTING. THORACIC MEDICINE SPECIALIST ON AND TRACING SR/ST. HAD A SEDATION VACATION FROM [id number]. HAD TO STOP THE SEDATION VACATION FOR TACHYCARDIA AND DESATURATON. RT AT BEDSIDE AND INCREASED FIO2, GOT STAT CXR AND WAITING ON RESULTS. BREATH SOUNDS ARE HEARD MORE ON THE RIGHT SIDE THAN LEFT SIDE. URINE OUTPUT WAS GOOD, PLACED CATHETER IN MORE AND THE MIRANDA BAG HAD 400ML AFTER THAT.
[2017-10-08 05:22] LABS: ALBUMIN 1.8 g/dL (3.4-5.0); CALCIUM 7.8 mg/dL (8.5-10.1); CREATININE 2.7 mg/dL (0.6-1.3); MAGNESIUM 1.8 mg/dL (1.8-2.4); PHOSPHORUS* 3.2 mg/dL (2.5-4.9); TOTAL BILIRUBIN 1.4 mg/dL (<0.1-1.0); TOTAL PROTEIN 4.8 g/dL (6.4-8.2)
[2017-10-08 06:03] LABS: ABSOLUTE EOSINOPHILS 0.5 thou/uL (0.0-0.7); ABSOLUTE LYMPHOCYTES 5.6 thou/uL (0.8-5.3); ABSOLUTE NEUTROPHILS 16.3 thou/uL (1.6-8.1); ANISOCYTOSIS 1+; PLATELET ESTIMATE ADEQUATE; POIKILOCYTOSIS 1+
[2017-10-08 14:16] LABS: URINE BILIRUBIN NEGATIVE (Negative); URINE BLOOD 1+ (Negative); URINE COLOR YELLOW; URINE GLUCOSE-RANDOM NEGATIVE (Negative); URINE KETONES NEGATIVE (Negative); URINE LEUKOCYTES-REFLEX 1+ (Negative); URINE NITRITE-REFLEX NEGATIVE (Negative); URINE PROTEIN TRACE (Negative); URINE SPECIFIC GRAVITY <= 1.005 (1.005-1.030); URINE UROBILINOGEN 0.2 E.U./dl (0.2-1.0)
[2017-10-08 14:17] LABS: URINE CLARITY SL CLOUDY
[2017-10-08 14:30] LABS: CASTS None Seen /LPF (None Seen); CRYSTALS None Seen /LPF (None Seen)
[2017-10-08 14:31] LABS: SQUAMOUS NONE SEEN /LPF (0-3); URINE RBC 3-10 Few /HPF (0-2); URINE WBC-REFLEX 6-15 Few /HPF (0-5)
--- NOTE | 2017-10-08 19:40 | NUR ---
PT DID NOT TOLERATE SEDATION VACATION THIS MORNING WELL. PT BECAME TACHYCARDIC AND TACHYPNIC. SEDATION RESUMED AND PT APPEARS TO BE CALM AND LIGHTLY SEDATED. PT'S O2 AT SHIFT CHANGE WAS 86-90% ON 40%FIO2. FIO2 INCREASE OVER THE MORNING UP TO 75%. TUBE FEEDING NOT TOLERATED DURING THE ENTIRE DAY WITH RESIDUALS UP TO 350. TUBE FEEDING HELD AT CURRENCY EXCHANGE SPECIALIST CHANGE. ONCOMING NURSE TO ASSESS AFTER TF HAS BEEN HELD FOR A COUPLE OF HOURS. ILLEOSTOMY CHANGED, DRESSING CHANGE X2, 1 STAPLE REMOVED FROM MIDLINE AND 1 4X4 DRESSING PACKED INTO WOUND. BRUISING FOUND FROM SHOULDER DOWN TO WRIST ON RUE. DOPPLER ULTRASOUND DONE AND NO SIGNS OF DVT. Q2H TURNS THROUGHOUT THE SHIFT TO MAINTAIN SKIN INTEGRITY. LEVOPHED STARTED THIS AFTERNOON FOR MAP'S IN THE 50'S. POTASSIUM REPLACED PER TUBE.
[2017-10-09] VITALS (15 sets, daily range): BP systolic 98–146; BP diastolic 46–97
[2017-10-09 01:25] LABS: BE -5.6 mmol/L (-2 to +3); HCO3 18.3 mmol/L (22.0-26.0); PCO2 30.2 mmHg (35.0-45.0)
[2017-10-09 01:27] LABS: PO2 55.8 mmHg (75.0-100.0)
--- NOTE | 2017-10-09 02:13 | NUR ---
PATIENT 02 DROPPED IN LOW 80'S AFTER BEING TURNED. PLACED BACK TO SEMI-FOWLERS POSITION GOT STAT CHEST XRAY, ABG AND SPOKE WITH DR. BARRETO ABOUT PT ACUTE STATUS CHANGE. ORDERS RECIEVED. PT IS NOW STABLE O2 IN 96.
[2017-10-09 04:15] LABS: BASOPHILS 0.1 %; HEMOGLOBIN 8.6 gm/dL (12.0-15.0); NUCLEATED RBCS 0 /100WBC
[2017-10-09 04:17] LABS: ABSOLUTE EOSINOPHILS 0.2 thou/uL (0.0-0.7); ABSOLUTE LYMPHOCYTES 3.3 thou/uL (0.8-5.3); ABSOLUTE MONOCYTES 1.7 thou/uL (0.0-1.2); ABSOLUTE NEUTROPHILS 21.8 thou/uL (1.6-8.1); EOSINOPHILS 0.7 %; HEMATOCRIT 26.8 % (37.0-47.0); LYMPHOCYTES 12.3 %; MCH 27.2 pg (26.0-34.0); MCHC 32.1 g/dL (28.0-37.0); MONOCYTES 6.3 %; PLATELET COUNT* 257 thou/uL (150-400); POLYS 80.6 %; RBC 3.15 mil/uL (4.20-5.00); RDW-CV 15.8 % (10.5-14.5)
[2017-10-09 04:39] LABS: ALBUMIN 1.7 g/dL (3.4-5.0); CALCIUM 7.7 mg/dL (8.5-10.1); CREATININE 2.8 mg/dL (0.6-1.3); POTASSIUM 3.2 mmol/L (3.5-5.1); TOTAL BILIRUBIN 1.1 mg/dL (<0.1-1.0); TOTAL PROTEIN 4.7 g/dL (6.4-8.2)
[2017-10-09 05:09] LABS: BE -7.8 mmol/L (-2 to +3); HCO3 14.6 mmol/L (22.0-26.0); PCO2 21.2 mmHg (35.0-45.0); PO2 91.9 mmHg (75.0-100.0); pH 7.455 (7.340-7.450)
--- NOTE | 2017-10-09 10:30 | NUR ---
PT REMAINS ON VENT. LEVO RESTARTED YESTERDAY. HAD HIGH RESIDUALS FROM TUBE FEEDINGS, NOW AT 20/HR. NO FAMILY HERE AT THIS TIME. SPOKE WITH YESTERDAY, HE HAD NO QUESTIONS ABOUT PLAN OF CARE. CASE MGT WILL CONTINUE TO FOLLOW.
--- NOTE | 2017-10-09 11:46 | OP ---
[facility] [address] [place] [address] OPERATIVE REPORT Name: CLYDE BOB Room: [address] IN .R.#: [id number] Admission: 10/01/17 Attend Phys: Pete Conteh Discharge: Date of : 44 Report #: [id number] THIS REPORT FOR: //name// CC: Pete Mack [facility] DATE OF SERVICE: 10/01/2017 PREOPERATIVE DIAGNOSIS: Sigmoid mass. POSTOPERATIVE DIAGNOSIS: No evidence of sigmoid mass. OPERATIONS: 1. Exploratory laparotomy. 2. Right hemicolectomy with ileostomy. 3. Flexible sigmoidoscopy. 4. Right IJ central line. SURGEON: Pete Conteh M.D. MANAGER ARCHITECTURAL: Geri Brown M.D. ANESTHESIA: General. ESTIMATED BLOOD LOSS: 300 mL. SPECIMEN: Ileocolonic anastomosis and terminal ileum. DRAIN: None. DESCRIPTION OF PROCEDURE: After informed consent was obtained, the patient was brought to the operating room and placed supine. SCDs were placed and working, preoperative antibiotics were administered and general anesthesia was induced. The abdomen was prepped and draped in the usual sterile fashion. A midline laparotomy incision was made approximately 2 cm above the umbilicus down to the pubis. Fascia was incised. There was a significant amount of scar tissue from her previous partial colectomy and her previous cystectomy. Adhesions were taken down sharply using the cautery. This allowed visualization of the sigmoid colon. I do not see any evidence of a tattoo. Therefore, I performed flexible sigmoidoscopy and I was not able to locate any sort of lesion or palpate one. During the dissection of the colon, the right ileocolonic anastomosis appeared very dusky. This was inherent to the procedure, trying to free up the sigmoid colon and very scarred down area. I, therefore, elected to resect this area as I did not think it was viable. Therefore, [place] [address] OPERATIVE REPORT Name: CLYDE BOB Room: [address] IN [facility].#: [id number] Admission: 10/01/17 Attend Phys: Pete Conteh Discharge: Date of : 42 Report #: [id number] then stapled approximately 5 cm distal to the anastomosis. The ileum was taken down using the LigaSure device. Approximately 20 cm of ileum was resected. The ileum was then brought out through an incision in the left lower quadrant of the abdomen for an ileostomy. The abdomen was copiously irrigated. The fascia was then reapproximated with #1 looped PDS. The skin was closed with liam. Ileostomy was matured using 4-0 Vicryl and [place] ileostomy fashion. Dr. Geri Brown was the speech language pathologist assistant and he provided help with retraction, dissection of tissues and performance of the ileostomy. After sterile dressings were applied, I re-prepped and draped the right neck. The right internal jugular vein was cannulated. Wire was placed. Dilator was placed. Catheter was placed to 16 cm. It flushed and perri easily. The sterile dressings were applied. COMPLICATIONS: None. DISPOSITION: The patient was taken to recovery in guarded condition. <ELECTRONICALLY SIGNED> By: Pete Conteh MD 10/09/17 1146 [id number] [id number] Conteh MD /nt
--- NOTE | 2017-10-09 12:38 | CON ---
[facility] [address] [place] [address] CONSULTATION Name: CLYDE BOB Room: [address] IN [facility].#: [id number] Admission: 10/01/17 Attend Phys: Pete Conteh Discharge: Date of : 44 Report #: [id number] THIS REPORT FOR: //name// CC: Pete Stevens DATE OF SERVICE: 10/02/2017 CONSULTING PHYSICIAN: Sukhjinder Oliver MD REASON FOR CONSULTATION: Acute kidney injury. ADMISSION DIAGNOSES: Laparotomy and sigmoidectomy. CHIEF COMPLAINT: Elective admission for elective sigmoid resection. HISTORY OF PRESENT ILLNESS: This is a 76-year-old female who has a past medical history of sigmoid mass and hypertension and other medical problems who came in for elective sigmoid resection, which was done yesterday. Unfortunately post-surgery, the patient has gone into hypovolemic shock, is maxed out on Akash-Synephrine as well as Levophed. She has also developed acute kidney injury and is almost anuric with only 75 mL of urine output in the last 24 hours. She has received about 6-7 liters of fluids since yesterday including during the surgery. She has history of previous bladder surgery, has a suprapubic Steele catheter as well. Nephrology has been consulted for acute kidney injury. The patient is currently very lethargic, she is arousable, but then she falls back to sleep right away. She had evidence of metabolic and respiratory acidosis in her last blood gas, but that is being repeated. REVIEW OF SYSTEMS: We could not obtain because of the patient's mental status. PAST MEDICAL HISTORY: Includes history of hypertension, sigmoid mass, and hypothyroidism. PAST SURGICAL HISTORY: Includes hysterectomy, bladder removal, she had a suprapubic catheter in 1992, she has bilateral knee replacement, colonoscopy, and breast biopsy. FAMILY HISTORY: Noncontributory. ALLERGIES: Reviewed. CURRENT MEDICATIONS: Reviewed. HOME MEDICATIONS: [place] [address] CONSULTATION Name: CLYDE BOB Room: [address] IN [facility].#: [id number] Admission: 10/01/17 Attend Phys: Pete Conteh Discharge: Date of : 44 Report #: [id number] SOCIAL HISTORY: No history of any smoking, alcohol, or any recreational drug use. This history was taken from the patient's medical records. PHYSICAL EXAMINATION: VITAL SIGNS: Blood pressure is 105/53, pulse ox is 90% on 6 liter nasal cannula, respiration rate is 14, pulse rate is 91, and temperature is 37. GENERAL: She is very drowsy, she is barely arousable, then falls back to sleep. HEAD, EYES, EARS, NOSE AND THROAT: Mucous membranes are dry. NECK: No JVD. CHEST: Bilateral diminished breath sounds and no crackles or wheezing. CARDIOVASCULAR: S1, S2 normal. She is tachycardic. No murmurs. ABDOMEN: Soft and she has a midline dressing, which is clean, dry and intact. She has a suprapubic catheter present, which is draining a very scant amount of clear urine. She has a left colostomy bag with stool in it. LOWER EXTREMITIES: She has symmetrical extremities and no edema. NEUROLOGIC FUNCTION: The patient is very drowsy, not able to assess. PSYCH: Not able to assess. LABORATORY DATA: Hemoglobin is 8.4, WBC 7.8, platelet count is 225. Sodium is 144, potassium is 3.2, chloride is 116, CO2 is 20, creatinine is 2, and BUN is 27. Blood gas was 7.174 last night with a pCO2 of 42.9, pO2 of 62. Other labs were reviewed. IMAGING: Chest x-ray was reviewed. The patient has developed some bilateral small pleural effusions now. ASSESSMENT: 1. Acute kidney injury, likely ischemic acute tubular necrosis. 2. Hypokalemia. 3. Metabolic and respiratory acidosis. 4. Sigmoid mass, status post resection. 5. Hypovolemic shock. PLAN: The patient is more towards anuric acute tubular necrosis. Potassium is being replaced only with 20 mEq of potassium chloride. I would slow down the IV fluids. The patient is currently getting D5 water with 2 amps of sodium bicarbonate in it, we will slow down to 100 mL an hour. Blood gas will be repeated to assess her acid base status again. The patient is at very high risk for requiring renal replacement therapy. There is no acute need currently, but if she continues the way she is, she will probably need CRRT soon. Overall, prognosis is very guarded. This was discussed with the patient's RN. More than 35 minutes was spent in the patient's care. She was on triamterene/hydrochlorothiazide at home and her baseline creatinine is not known. The diuretics may have contributed to her kidney injury, but definitely surgery was a big stress and hypovolemia post-surgery is the major reason for ischemic ATN, try to keep a mean arterial pressure more than 65. [address] [address] CONSULTATION Name: CLYDE BOB Room: [address] IN [facility].#: [id number] Admission: 10/01/17 Attend Phys: Pete Conteh Discharge: Date of : 44 Report #: [id number] Thank you for this consultation and I will continue to monitor. <ELECTRONICALLY SIGNED> By: Johanna Tucker MD 10/09/17 1238 1002 [id number] Tucker MD /nt
--- NOTE | 2017-10-09 18:51 | NUR ---
PT ASSESSMENT CHARTED. VSS THROUGHOUT THE SHIFT. LEVOPHED TURNED OFF AROUND NOON. SEDATION TURNED OFF AT THAT POINT WELL. PT MOVING HEAD, ARMS AND FEET BUT IS NOT RESPONSIVE TO COMMAND. SHE HAS NOT OPENED HER EYES AND DOES NOT HAND GRASP. PT TAKEN FOR CT OF ABDOMEN. PLAN FOR A TTT TOMORROW.
[2017-10-10] VITALS (16 sets, daily range): BP systolic 107–168; BP diastolic 63–98
[2017-10-10 05:38] LABS: CALCIUM 7.9 mg/dL (8.5-10.1); CREATININE 2.6 mg/dL (0.6-1.3); POTASSIUM 3.1 mmol/L (3.5-5.1)
--- NOTE | 2017-10-10 08:24 | NUR ---
PT REMAINS ON VENTILATOR, SEDATION HAS BEEN OFF SINCE NOON YESTERDAY IN PREPARATION FOR T TUBE TRIAL THIS MORNING. PT REMAINS MINIMALLY RESPONSIVE, RESTLESS IN BED BUT DOES NOT FOLLOW COMMAND OR OPEN EYES TO ANY STIMULATION. TUBE FEED RESIDUALS HAVE REMAINED STABLE, INFUSING AT GOAL RATE OF 40ML/HR. PT HAS RECEIVED 250ML FREE WATER BOLUSES Q3HR ORDERED. POTASSIUM 3.1 THIS AM, REPLACEMENT GIVEN PER OG TUBE. DOCUMENTED URINE OUTPUT VIA ILEAL CONDUIT IS NOT ACCURATE TO ENTIRE OUTPUT COPIOUS AMOUNTS OF URINE HAS DRAINED AROUND INDWELLING CATHETER THROUGHOUT THE NIGHT. PACKING AND DRESSING CHANGED TO MIDLINE INCISION EVISCERATION. VSS WITHOUT PRESSORS. COMPLETE BED BATH GIVEN. PT HAS BEEN TURNED Q2HR THROUGHOUT THE SHIFT.
[2017-10-10 10:10] LABS: ABSOLUTE EOSINOPHILS 0.3 thou/uL (0.0-0.7); ABSOLUTE MONOCYTES 1.4 thou/uL (0.0-1.2); ABSOLUTE NEUTROPHILS 20.4 thou/uL (1.6-8.1); BASOPHILS 0.2 %; EOSINOPHILS 1.2 %; HEMATOCRIT 24.6 % (37.0-47.0); HEMOGLOBIN 7.9 gm/dL (12.0-15.0); LYMPHOCYTES 8.3 %; MCH 27.6 pg (26.0-34.0); MCHC 32.3 g/dL (28.0-37.0); MCV 85.5 fL (80.0-100.0); MONOCYTES 5.7 %; NUCLEATED RBCS 0 /100WBC; PLATELET COUNT* 228 thou/uL (150-400); POLYS 84.6 %; RBC 2.88 mil/uL (4.20-5.00); RDW-CV 15.8 % (10.5-14.5); WBC 24.1 thou/uL (4.0-11.0)
[2017-10-10 14:14] LABS: ALBUMIN 1.6 g/dL (3.4-5.0); CALCIUM 7.8 mg/dL (8.5-10.1); CREATININE 2.5 mg/dL (0.6-1.3); POTASSIUM 3.6 mmol/L (3.5-5.1); TOTAL BILIRUBIN 0.7 mg/dL (<0.1-1.0); TOTAL PROTEIN 4.7 g/dL (6.4-8.2)
[2017-10-10 14:36] LABS: PHOSPHORUS* 2.3 mg/dL (2.5-4.9)
[2017-10-10 14:37] LABS: MAGNESIUM 1.7 mg/dL (1.8-2.4)
--- NOTE | 2017-10-10 15:26 | NUR ---
ASSUMED CARE OF PT AROUND 0730 THIS AM. REFER TO ASSESSMENT. ATTEMPTED TTT TODAY AND PT DID NOT TOLERATE. CVP DC'D AND TEMPORARY DIALYSIS PORT REMOVED THIS SHIFT. NEW CATHETER PLACED THIS SHIFT TO HELP WITH URINE DRAINAGE. MAY NEED PERIODICALLY FLUSHED FOR SEDIMENT. FAMILY AT BEDSIDE. NO OTHER CONCERNS AT THIS TIME. CLWR. WCTM.
--- NOTE | 2017-10-10 17:07 | NUR ---
PT SOMEWHAT PROGRESSING TOWARDS GOALS. TELE REMAINS ST. B/P STABLE THIS SHIFT. PT MORE ALERT THIS EVENING AND FOLLOWING COMMANDS. PT HAS NOT BEEN ON SEDATION SINCE NOON YESTERDAY. PT DID NOT PASS TTT THIS AM. PT HAD MARKED ELEVATION WITH PULSE, RESPIRATIONS, AND BLOOD PRESSURE DURING TRIAL. PT TOLERATED TUBE FEEDINGS THIS SHIFT. FAMILY AT BEDSIDE. NO OTHER CONCERNS AT THIS TIME. CLWR. WCTM.
[2017-10-11] VITALS (17 sets, daily range): BP systolic 129–173; BP diastolic 65–90
[2017-10-11 04:34] LABS: ALBUMIN 1.7 g/dL (3.4-5.0); CALCIUM 7.8 mg/dL (8.5-10.1); CREATININE 2.3 mg/dL (0.6-1.3); MAGNESIUM 1.6 mg/dL (1.8-2.4); PHOSPHORUS* 2.5 mg/dL (2.5-4.9); POTASSIUM 3.3 mmol/L (3.5-5.1)
--- NOTE | 2017-10-11 05:56 | NUR ---
ASSUMED CARE OF PT AT 1900 PT DROWSY BUT OPENS EYES WHEN SPOKEN TO. PT REMAINS INTUBATED SEE ASSESSMENT FOR DETAILED DOCUMENTATION. ORAL CARE, POSITIONING AND RESTRAINT RELEASE Q2H.TOLERATED TUBE FEEDING AND FLUSHES VSS PT ST ON THE MONITOR. PT SLEPT THROUGH THE NIGHT. WILL CONTINUE PLAN OF CARE.
--- NOTE | 2017-10-11 12:19 | NUR ---
STOOL SAMPLE SENT FOR C DIFF. PT PLACED IN ISOLATION
[2017-10-12] VITALS (22 sets, daily range): BP systolic 84–151; BP diastolic 41–91
[2017-10-12 04:38] LABS: HEMATOCRIT 22.5 % (37.0-47.0); HEMOGLOBIN 7.3 gm/dL (12.0-15.0); MCH 27.5 pg (26.0-34.0); MCHC 32.4 g/dL (28.0-37.0); MPV 9.7 fl. (7.2-11.1); NUCLEATED RBCS 0 /100WBC; RBC 2.65 mil/uL (4.20-5.00); RDW-CV 16.1 % (10.5-14.5)
[2017-10-12 05:00] LABS: ALBUMIN 1.6 g/dL (3.4-5.0); CALCIUM 7.9 mg/dL (8.5-10.1); CREATININE 2.2 mg/dL (0.6-1.3); MAGNESIUM 2.1 mg/dL (1.8-2.4); PHOSPHORUS* 2.6 mg/dL (2.5-4.9); POTASSIUM 3.4 mmol/L (3.5-5.1); TOTAL BILIRUBIN 0.5 mg/dL (<0.1-1.0); TOTAL PROTEIN 4.6 g/dL (6.4-8.2)
[2017-10-12 05:25] LABS: PLATELET COUNT* 338 thou/uL (150-400)
[2017-10-12 05:54] LABS: PREALBUMIN 15.2 mg/dL (18.0-35.7)
[2017-10-12 06:34] LABS: ABSOLUTE LYMPHOCYTES 1.5 thou/uL (0.8-5.3); ABSOLUTE MONOCYTES 0.6 thou/uL (0.0-1.2); ABSOLUTE NEUTROPHILS 16.9 thou/uL (1.6-8.1); METAMYELOCYTES 1 %
[2017-10-12 06:36] LABS: PLATELET ESTIMATE ADEQUATE
--- NOTE | 2017-10-12 10:38 | NUR ---
4470 ASSUMED CARE OF [facility]. PLEASE SEE DOCUMENTED ASSESSMENT. DR MOSHER HERE TO SEE PATIENT. PT IS UNSEDATED ON VENT. PLAN IS FOR VENT WEANING TRIAL. OG NOTED TO BE OUT OF PATIENT AND [id number] IN BED. PAGE TO DR SWEENEY
--- NOTE | 2017-10-12 10:51 | NUR ---
OG REPLACED PER ORDER AND FEEDING RESUMED. DR GARCIA HERE AND IS SIGNING OFF OF CASE
--- NOTE | 2017-10-12 13:12 | NUR ---
ON SECOND VENT WEANING TRIAL
--- NOTE | 2017-10-12 13:33 | NUR ---
SECOND WAENING TRIAL DONE AND RESULTS CALLED TO DR MOSHER
--- NOTE | 2017-10-12 17:22 | NUR ---
PT MAKING SOME PROGRESS TOWARDS GOALS. FAILED WEANING TRIALS TODAY. OG REPLACED AND TOLERATING TUBE FEEDINGS. URINE OUTPUT HAS BEEN UNMEASURED DUE TO LEAKAGE AROUND SITE EVEN THOUGH CATHETER WAS IRRIGATED WITH GOOD RETURN OF IRRIGANT. MEDICATED FOR PAIN TWICE. ABLE TO FOLLOW COMMANDS. VSS. MANY FAMILY MEMBERS HAVE VISITED
--- NOTE | 2017-10-12 22:55 | NUR ---
PT REPOSITIONED TO LEFT SIDE ONE HOUR AGO. WITHIN 15 MINUTES OF BEING ON LEFT SIDE PTS O2 SAT DROPPED TO MID-LOW 80'S. APPROPRIATE ETT PLACEMENT CONFIRMED, 22CM @ LIP WITH NO CHANGE, CUFF INFLATED. ETT WAS SUCTIONED, LARGE AMOUNTS OF WHITE SPUTUM, AND O2 INCREASED TEMPORARILY. O2 SAT REBOUNDED TO LOW 90'S BUT CONTINUED TO INTERMITTED DROP INTO THE 80'S. PT REPOSITIONED TO RIGHT SIDE AT THIS TIME AND O2 SAT NOW 100%.
[2017-10-13] VITALS (13 sets, daily range): BP systolic 105–159; BP diastolic 47–93
[2017-10-13 04:08] LABS: HEMATOCRIT 22.4 % (37.0-47.0); HEMOGLOBIN 7.3 gm/dL (12.0-15.0); MCH 27.5 pg (26.0-34.0); MCHC 32.4 g/dL (28.0-37.0); MCV 84.8 fL (80.0-100.0); MPV 9.3 fl. (7.2-11.1); RBC 2.64 mil/uL (4.20-5.00); RDW-CV 16.7 % (10.5-14.5); WBC 19.3 thou/uL (4.0-11.0)
[2017-10-13 04:56] LABS: ALBUMIN 1.7 g/dL (3.4-5.0); CALCIUM 7.9 mg/dL (8.5-10.1); CREATININE 2.1 mg/dL (0.6-1.3); TOTAL BILIRUBIN 0.5 mg/dL (<0.1-1.0); TOTAL PROTEIN 4.8 g/dL (6.4-8.2)
--- NOTE | 2017-10-13 06:38 | NUR ---
PT REMAINS STABLE ON VENTILATOR. POTASSIUM LEVEL 3.0 THIS AM, DR ESTRELLA PAGED, AWAITING RETURN CALL. VSS. COMPLETE BED BATH GIVEN, PT TOLERATED WELL. PT HAS BEEN TURNED Q2HR THROUGHOUT THE SHIFT, FROM SEMI-FOWLERS TO RIGHT SIDE ONLY DUE TO DESATURATION WHEN ON LEFT SIDE. PT IS ALERT AND FOLLOWS COMMANDS.
--- NOTE | 2017-10-13 12:21 | NUR ---
PATIENT CARE ASSUMED AT 0700. PATIENT REMAINS ON VENTILATOR. BID WEANING TRIALS AND DUONEBS ORDERED BY DR PETTY THIS AM. PATIENT TOLERATED AM WEANING TRIAL, BUT REQUIRED HIGH PRESSURE SUPPORT. WILL TRIAL AGAIN THIS AFTERNOON WITH SAME PRESSURE AND ATTEMPT TO WEAN DOWN TOMORROW. FAMILY UPDATED ON THIS PLAN OF CARE.
--- NOTE | 2017-10-13 15:10 | NUR ---
PATIENT CT RESCHEDULED FOR TOMORROW SHE REQUIRES TRIAL SOON. COLLABORATED WITH RT FOR BETTER TIME FOR SCAN TOMORROW.
--- NOTE | 2017-10-13 17:28 | NUR ---
PATIENT PROGRESSING TOWARDS GOALS. CONTINUING BID TRIALS. CHANEL, DAUGHTER IN LAW, CALLED AND WAS UPDATED ON PLAN OF CARE. AT THE BEDSIDE. DENIES FURTHER NEEDS. NO ACUTE CHANGES.
--- NOTE | 2017-10-13 20:15 | NUR ---
REMOVED THE SOFT WRIST RESTRIANTS FROM THE PT AT HIS TIME. WILL CON'T TO MONITOR.
[2017-10-14] VITALS (13 sets, daily range): BP systolic 94–156; BP diastolic 46–75
--- NOTE | 2017-10-14 02:30 | NUR ---
HAD TO PLACE SOFT RESTRAINTS BACK ON PT'S ARMS. PT WAS TRYING TO EXTUBATE HERSELF.
[2017-10-14 03:31] LABS: HEMATOCRIT 21.9 % (37.0-47.0); HEMOGLOBIN 7.1 gm/dL (12.0-15.0); MCH 27.5 pg (26.0-34.0); MCHC 32.3 g/dL (28.0-37.0); MCV 85.3 fL (80.0-100.0); MPV 9.2 fl. (7.2-11.1); RBC 2.57 mil/uL (4.20-5.00); RDW-CV 16.1 % (10.5-14.5); WBC 20.5 thou/uL (4.0-11.0)
[2017-10-14 03:41] LABS: MAGNESIUM 1.8 mg/dL (1.8-2.4)
[2017-10-14 04:01] LABS: POTASSIUM 2.8 mmol/L (3.5-5.1)
--- NOTE | 2017-10-14 17:46 | NUR ---
PATIENT PROGRESSING TOWARDS GOALS. WEANING TRIALS TID. TOLERATED AFTERNOON WEANING TRIAL AFTER 25 MCG OF FENTANYL ADMINISTERED. NEXT TRIAL TO BE COMPLETED ON HEEL STAINER WITH LOWER PRESSURE SUPPORT. DAUGHTER IN LAW, CHANEL, UPDATED ON THIS WHO STATED SHE WILL UPDATE THE PATIENT'S . MIDLINE INCISION PACKING CHANGED TODAY, CURRENTLY HAS SMALL SERIOUS DRAINAGE. PLACED ON 1/2 NS AT 80 ML/HR PER HOSPITALIST FOR HIGH SODIUM, NEPHROLOGY IS NO LONGER FOLLOWING THIS PATIENT. REPEAT LABS IN AM. OTHERWISE NO CHANGES IN PATIENT ASSESSMENT.
[2017-10-15] VITALS (14 sets, daily range): BP systolic 94–160; BP diastolic 43–86
[2017-10-15 04:42] LABS: HEMATOCRIT 20.5 % (37.0-47.0); MCH 27.4 pg (26.0-34.0); MCHC 32.1 g/dL (28.0-37.0); MCV 85.5 fL (80.0-100.0); MPV 9.6 fl. (7.2-11.1); RBC 2.4 mil/uL (4.20-5.00)
[2017-10-15 04:50] LABS: INR 1.1; PROTIME 10.4 Seconds (9.20-11.50)
[2017-10-15 05:03] LABS: HEMOGLOBIN 6.6 gm/dL (12.0-15.0)
[2017-10-15 05:06] LABS: ALBUMIN 1.8 g/dL (3.4-5.0); CALCIUM 7.9 mg/dL (8.5-10.1); MAGNESIUM 1.8 mg/dL (1.8-2.4); TOTAL BILIRUBIN 0.5 mg/dL (<0.1-1.0); TOTAL PROTEIN 4.9 g/dL (6.4-8.2); TROPONIN-I LEVEL 0.07 ng/mL (<0.06)
[2017-10-15 05:47] LABS: HEMATOCRIT 19.5 % (37.0-47.0); HEMOGLOBIN 6.3 gm/dL (12.0-15.0)
--- NOTE | 2017-10-15 06:05 | NUR ---
SOME PROGRESSION TOWARDS GOALS. ASSESSMENT AND VS OBTAINED,SEE CHARTING. TIRE FABRIC INSPECTOR TRACING SR. PT REMAINS ON VENT WITH CURRENT ORDER SETTINGS. PT HAD A WEANING TRAIL AND DID VERY WELL AT PRESSURE SUPPORT OF 6. LAB CALLED WITH CRITICAL HBG AND SAMEER WAS NOTIFIED AND CARRIED OUT THE ORDERS. RPT HGB WAS 6.3 AND 1 UNIT OF RBC ORDERED. BLADDER CONDUIT LEAKED THROUGH UT THE NIGHT. REMOVED IT AND PLACED BACK IN AND IT STARTED TO DRAIN. CHANGED DRESSING IN MID LINE INCISION WAS CHANGED TWICE. HIGHEST RESIDUAL WAS 30ML. CON'T WITH THE 250ML WATER BOLUSES.
--- NOTE | 2017-10-15 09:56 | NUR ---
PATIENT CARE ASSUMED AT 0700. PATIENT REMAINS NON-SEDATED. AWAKE UPON ENTERING ROOM. ASSESSMENT AND VITALS CHARTED. PATIENT HAD WEANING TRIAL OVERNIGHT THAT WENT WELL ON PRESSURE SUPPORT OF 6. RT ATTEMPTED LOWER PRESSURE SUPPORT ON AM TRIAL, BUT PATIENT WAS TACHYCARDIC AND TACHYPNEIC. TOLERATED PRESSURE SUPPORT OF [address] PETTY ON THE FLOOR WHO STATED TO CONTINUE TRIALS TID, BUT STATED PATIENT IS NOT READY FOR EXTUBATION YET. HE ALSO ORDERED LASIX THIS AFTERNOON AFTER BLOOD TRANSFUSION AND BMP 1 HOUR LATER. POTASSIUM BEING REPLACED PER PROTOCOL. HGB 6.3 ON AM LABS. ORDERS FOR 2 UNITS PRBCS. INFUSING FIRST UNIT NOW. WOUND NURSE IN TO SEE PATIENT THIS MORNING, NIKIA ANAL BRUISING THAT WAS THERE PREVIOUSLY IS NO LONGER VISIBLE. BACKSIDE CLEAN/DRY/INTACT. BRUISING TO RIGHT ARM MANAGER BEHAVIOR IN SHADE. MIRANDA SECURED WITH EXTRA TAPE IT SEEMED TO BE LEAKING THIS AM. PACKING TO 12TH SUTURE IN MIDLINE INCISION CHANGED. ALL OTHER INCISIONS REMAIN IN PLACE AND THE REST OF INCISION REMAINS WELL APPROXIMATED. 250 ML WATER BOLUSES GIVEN ONCE THIS AM SCHEDULED, 250 MORE ML GIVEN WITH MEDICATIONS. SUPPLEMENT GIVEN ORDERED. TOLERATING TUBE FEEDS THIS AM, AM RESIDUAL CHARTED. WAS PRESENT AT THE BEDSIDE THIS MORNING AND WAS UPDATED ON PLAN OF CARE.
--- NOTE | 2017-10-15 11:06 | NUR ---
WOUND CARE NOTE: REASSESSMENT OF ECCHYMOSIS TO NIKIA-ANAL AND LABIAL REGION. DISCOLORATION/ECCHYMOSIS HAS RESOLVED. SKIN IS INTACT, NO DISCOLORATION NOTED. RECOMMEND CONTINUE WITH CURRENT CARE PLAN ENCOURAGE GOOD NUTRITION/HYDRATION ONCE ABLE TO EAT WILL SIGN OFF AT THIS TIME, PLEASE RECONSULT IF NEEDED
--- NOTE | 2017-10-15 12:08 | NUR ---
SPOKE WITH NURSING, PT IS GETTING 3X DAY WEANING TRIALS, HOPE TO EXTUBATE SOON. SPOKE WITH , HE SAID HE IS DOING OKAY. HE SAID HE IS ANXIOUS FOR HER TO GET OFF THE VENT SO SHE CAN TALK TO HIM, AND HE KNOW THAT SHE IS OKAY. CASE MGT WILL CONTINUE TO FOLLOW.
[2017-10-15 15:55] LABS: HEMATOCRIT 28.8 % (37.0-47.0); HEMOGLOBIN 9.5 gm/dL (12.0-15.0)
[2017-10-15 15:58] LABS: CALCIUM 7.9 mg/dL (8.5-10.1); POTASSIUM 3.3 mmol/L (3.5-5.1)
--- NOTE | 2017-10-15 17:27 | NUR ---
PATIENT PROGRESSING TOWARDS GOALS. AM TRIAL REQUIRED EXTRA PRESSURE SUPPORT, AFTERNOON TRIAL PATIENT ADEQUATE AFTER ADMINISTRATION OF VERSED PRIOR TO ATTEMPTING. PATIENT VERY ANXIOUS AND RESISTANT TO EDUCATION WHEN AWARE OF TRIAL. MAY POSSIBLY NEED TRIAL TO BE STARTED WITHOUT EXPLANATION FIRST. OTHERWISE ASSESSMENT REMAINS UNCHANGED, REFER TO CHARTING.
[2017-10-16] VITALS (11 sets, daily range): BP systolic 106–150; BP diastolic 50–83
[2017-10-16 05:16] LABS: CALCIUM 8.3 mg/dL (8.5-10.1); CREATININE 2.6 mg/dL (0.6-1.3); POTASSIUM 3.7 mmol/L (3.5-5.1)
--- NOTE | 2017-10-16 06:44 | NUR ---
PT. REMAINS ON VENTILATOR, PRN SEDATION GIVEN THROUGHOUT SHIFT. TUBE FEEDING INCREASED TO 40CC/HR (GOAL) THROUGHOUT SHIFT. PT. TO HAVE TTT THIS ApoloniaJerryLyle CHANEL, DAUGHTER IN LAW UPDATED ON PT. STATUS. WILL CONTINUE TO MONITOR.
--- NOTE | 2017-10-16 07:23 | CON ---
[facility] [address] [place] [address] CONSULTATION Name: CLYDE BOB Room: [address] IN M.R.#: [id number] Admission: 10/01/17 Attend Phys: Pete Conteh Discharge: Date of : 44 Report #: [id number] THIS REPORT FOR: //name// CC: Pete Barthmehreen Stevens DATE OF SERVICE: 10/14/2017 HISTORY OF PRESENT ILLNESS: This is a 76-year-old female patient for whom a neurological consultation was requested by Dr. Veliz to evaluate this patient for any neurological etiology for the patient's altered mental status. When patient was seen, she was on a weaning trial. I had talked to the nurses and it looks like this patient had altered mental status, but she was in fact improving as far as her altered mental status is concerned. She did have a history of a sigmoid mass with resection. She was hypotensive at one time as the records indicate, and whatever I can tell from the record, it looks like she has been encephalopathic from several days, and even on 10/01/2017, H and P indicate that she was encephalopathic. REVIEW OF SYMPTOMS: Not available from the patient, but it looks like she had a colon mass. She had a prior history of knee replacement and hysterectomy. She had a breast biopsy done. I tried to carry out the 14-point review of system, and this is the best I can get mostly from the record because no family member is here. PAST MEDICAL HISTORY: Positive for multiple things like hypertension. SOCIAL HISTORY: From the record, it looks like she is a nonsmoker and nondrinker. FAMILY HISTORY: Negative for cardiopulmonary disease. PHYSICAL EXAMINATION: The patient's examination indicate she opens her eyes. She can follow simple commands. It is not possible to do further neurological examination in this patient because she is still intubated. I tried to do the cranial nerve examination. I think she can move her eyes in multiple directions. She is able to move her all 4 extremities, but further neuromuscular examination is not possible because of her condition. She is moderately built individual who does not have any dysmorphic features of eyes, ears and face. She is still intubated. She does not have any edema, cyanosis or jaundice. Her cardiac examinations appear unremarkable. She is febrile with the temperature of 100.4, blood pressure is 117/62, respirations 18 and pulse is 92. She is on vent. LABORATORY DATA: Her white count is 20.5. Her sodium is 150. Her creatinine is 2. She is scheduled to have a CT scan done, but [place] [address] CONSULTATION Name: CLYDE BOB Room: [address] IN ..#: [id number] Admission: 10/01/17 Attend Phys: Pete Conteh Discharge: Date of : 44 Report #: [id number] nurses has not been able to go because of instability. IMPRESSION: This patient's study is consistent with encephalopathy. This patient has multiple systemic problems including hypernatremia, high white count, respiratory problems and renal problems, which will cause her encephalopathy. She also has a very low albumin. We will get an EEG done on her some time and talk to you about this patient. Thank you very much for this referral. <ELECTRONICALLY SIGNED> By: Stanley Cadena MD 10/16/17 0723 11 [id number] Cadena MD /nt
[2017-10-16 08:11] LABS: HEMATOCRIT 31.4 % (37.0-47.0); HEMOGLOBIN 10.3 gm/dL (12.0-15.0); MCH 28.6 pg (26.0-34.0); MCHC 32.8 g/dL (28.0-37.0); MCV 87.1 fL (80.0-100.0); MPV 10.4 fl. (7.2-11.1); NUCLEATED RBCS 0 /100WBC; PLATELET COUNT* 404 thou/uL (150-400); RBC 3.61 mil/uL (4.20-5.00); RDW-CV 16.2 % (10.5-14.5); WBC 22.2 thou/uL (4.0-11.0)
[2017-10-16 08:48] LABS: ABSOLUTE LYMPHOCYTES 1.1 thou/uL (0.8-5.3); ABSOLUTE MONOCYTES 0.7 thou/uL (0.0-1.2); ABSOLUTE NEUTROPHILS 20.4 thou/uL (1.6-8.1); MYELOCYTES 1 %; PLATELET ESTIMATE ADEQUATE
[2017-10-16 08:49] LABS: ANISOCYTOSIS 1+; POLYCHROMASIA 1+
[2017-10-16 09:28] LABS: BE -10.5 mmol/L (-2 to +3); HCO3 12.9 mmol/L (22.0-26.0); PCO2 22.5 mmHg (35.0-45.0); PO2 114.6 mmHg (75.0-100.0); pH 7.375 (7.340-7.450)
--- NOTE | 2017-10-16 18:51 | NUR ---
PT AWAKE MOST OF THE DAY. PT FOLLOWS COMMANDS ON DEMAND. PT DID NOT REPORT ANY PAIN WHEN ASKED. PRN SEDATION MEDICATION GIVEN SEVERAL TIMES THROUGHOUT THE DAY. PT NOT TOLERATING TUBE FEEDINGS AGAIN. D5 RUNNING AND REMAINS GETTING WATER FLUSHES. OUTPUT FROM MIRANDA VERY MINIMAL. ILLEOSTOMY WITH 300 OUT. Q2H TURNS TO MAINTAIN SKIN INTEGRITY. NO OTHER CONCERNS THROUGHOUT THE DAY. PULMONARY TO DISCUSS TRACHEOSTOMY AND PEG TUBE PLACEMENT WITH PATIENT'S FAMILY TOMORROW PER HUSBANDS REQUEST. WEANING TRIAL SCHEDULED FOR THE RAJI.
[2017-10-17] VITALS (12 sets, daily range): BP systolic 102–153; BP diastolic 56–99
--- NOTE | 2017-10-17 05:41 | NUR ---
PATIENT PROGRESSING. NO SEDATION GIVEN OVER NIGHT. PT HR IN THE 80 TO LOW 90'S. ABLE TO FOLLOW COMMANDS. VERY WEAK. URINE OUPUT INADEQUATE REMAINS OLIGURIC. CHANGED PACKING IN MIDLINE INCISION. ILEOSTOMY IN PLACE LIQUID GREEN/YELLOW COLORED STOOL. Q2H TURN AND ORAL CARE GIVEN. FULL BED BATH AND LINEN CHANGE GIVEN. AFEBRILE THROUGHOUT SHIFT. WEANING TRIAL IN A.M. WILL CONTINUE TO MONITOR CLOSELY. SAFETY PRECAUTIONS IN PLACE.
[2017-10-17 06:43] LABS: ABSOLUTE BASOPHILS 0.1 thou/uL (0.0-0.2); ABSOLUTE EOSINOPHILS 0.1 thou/uL (0.0-0.7); ABSOLUTE MONOCYTES 1.3 thou/uL (0.0-1.2); ABSOLUTE NEUTROPHILS 12.7 thou/uL (1.6-8.1); BASOPHILS 0.6 %; EOSINOPHILS 0.7 %; HEMATOCRIT 27.1 % (37.0-47.0); HEMOGLOBIN 8.9 gm/dL (12.0-15.0); LYMPHOCYTES 12.6 %; MCH 28.8 pg (26.0-34.0); MCV 87.3 fL (80.0-100.0); MPV 9.4 fl. (7.2-11.1); NUCLEATED RBCS 0 /100WBC; POLYS 78.1 %; RDW-CV 16.4 % (10.5-14.5); WBC 16.3 thou/uL (4.0-11.0)
[2017-10-17 06:44] LABS: PLATELET COUNT* 310 thou/uL (150-400)
[2017-10-17 06:51] LABS: ALBUMIN 1.7 g/dL (3.4-5.0); CALCIUM 7.9 mg/dL (8.5-10.1); CREATININE 3.2 mg/dL (0.6-1.3); POTASSIUM 3.4 mmol/L (3.5-5.1); TOTAL BILIRUBIN 0.8 mg/dL (<0.1-1.0); TOTAL PROTEIN 4.9 g/dL (6.4-8.2)
[2017-10-17 09:26] LABS: BE -13.8 mmol/L (-2 to +3); PCO2 24.5 mmHg (35.0-45.0)
[2017-10-17 09:28] LABS: HCO3 11.3 mmol/L (22.0-26.0); PO2 126.1 mmHg (75.0-100.0); pH 7.282 (7.340-7.450)
--- NOTE | 2017-10-17 10:47 | NUR ---
SPOKE WITH AND Bailey BUCHANAN AT BEDSIDE. THEY ARE AWARE OF NEED FOR TRACH. THEY SAID THEY WERE ABLE TO TALK WITH DR. OVIEDO THIS MORNING AND HAVE NO QUESTIONS ABOUT PLAN OF CARE.
--- NOTE | 2017-10-17 20:00 | NUR ---
ASSUMED CARE AT 1930. CALLED DR. SWEENEY LEFT VOICE MAIL REGARDING PT CURRENT SITUATION OF TRACH PLACEMENT. DR. MAHAN HAS NOT CALLED BACK. PLACED A RED RUBBER CATHETER, [address] SWEENEY REQUEST. ACQUIRED INSTENT URINE TOTAL OUTPUT OF 1700. PT WILL BE STARTING CRRT TONIGHT. DIALYSIS NURSE CURRENTLY IN ROOM. WILL CONTINUE TO MONITOR CLOSELY ALL SAFETY PRECAUTIONS IN PLACE.
[2017-10-18] VITALS (11 sets, daily range): BP systolic 96–150; BP diastolic 50–87
--- NOTE | 2017-10-18 04:56 | NUR ---
PATIENT PROGRESSING TOWARDS GOALS. CONTINUES CRRT THERAPY. TOLERATING WELL. BP 135/65, HR 84, O2 100, RR 19. PT ABLE TO FOLLOW COMMANDS. LOW GRADE FEVER 99.5. PT IS HAVING INTERMITTENT SHIVERING. ILEOSTOMY BAG CHANGED, LIQUID YELLOW/DARK GREEN STOOL. MIDLINE INCISION REPACKED AND CHANGED. NOTICED YELLOW/GREEN COLORED SECRETIONS ON GAUZE WILL LET KNOW. TEMP DIALYSIS CATH INTACT, OPERATING WELL. CONTINUOUS ORAL CARE GIVEN MODERATE THIN, CLEAR/WHITE SECRETIONS. OG TO LIS. RECIEVED FULL BED BATH AND LINEN CHANGE. Q2H TURNS. WILL CONTINUE TO MONITOR CLOSELY.
[2017-10-18 05:18] LABS: ABSOLUTE BASOPHILS 0.1 thou/uL (0.0-0.2); ABSOLUTE EOSINOPHILS 0.2 thou/uL (0.0-0.7); ABSOLUTE LYMPHOCYTES 1.4 thou/uL (0.8-5.3); ABSOLUTE MONOCYTES 1.2 thou/uL (0.0-1.2); ABSOLUTE NEUTROPHILS 9.1 thou/uL (1.6-8.1); BASOPHILS 0.7 %; EOSINOPHILS 1.5 %; HEMATOCRIT 25.9 % (37.0-47.0); HEMOGLOBIN 8.6 gm/dL (12.0-15.0); MCH 28.3 pg (26.0-34.0); MCHC 33.2 g/dL (28.0-37.0); MCV 85.1 fL (80.0-100.0); MONOCYTES 10.2 %; MPV 9.1 fl. (7.2-11.1); NUCLEATED RBCS 0 /100WBC; POLYS 75.6 %; RBC 3.05 mil/uL (4.20-5.00); RDW-CV 15.6 % (10.5-14.5); WBC 12.1 thou/uL (4.0-11.0)
[2017-10-18 05:23] LABS: PLATELET COUNT* 231 thou/uL (150-400)
[2017-10-18 05:41] LABS: ALBUMIN 2.4 g/dL (3.4-5.0); CALCIUM 8.2 mg/dL (8.5-10.1); MAGNESIUM 1.5 mg/dL (1.8-2.4); TOTAL BILIRUBIN 1.1 mg/dL (<0.1-1.0)
[2017-10-18 05:49] LABS: POTASSIUM 2.9 mmol/L (3.5-5.1)
--- NOTE | 2017-10-18 06:12 | NUR ---
PATIENT POTASSIUM CH @ 2.9. SPOKE WITH HOUSE SUP. SAID THAT SINCE IT WAS ABOUT TO BE SHIFT CHANGE. PHARMACY COULD MAKE THAT WHEN THEY ARRIVE THIS MORNING. PT IS STABLE NO ACUTE HEMODYNAMIC CHANGES AT THIS TIME. CRRT IN PROGRESS. WILL PASS THIS ON TO ONCOMING NURSE.
[2017-10-18 12:12] LABS: HEMATOCRIT 22.5 % (37.0-47.0); HEMOGLOBIN 7.7 gm/dL (12.0-15.0); MCH 28.8 pg (26.0-34.0); MCHC 34.1 g/dL (28.0-37.0); MCV 84.6 fL (80.0-100.0); MPV 9.1 fl. (7.2-11.1); RBC 2.66 mil/uL (4.20-5.00); RDW-CV 15.8 % (10.5-14.5); WBC 9.6 thou/uL (4.0-11.0)
[2017-10-18 12:22] LABS: INR 1.5; PROTIME 14.5 Seconds (9.20-11.50)
[2017-10-18 12:27] LABS: CALCIUM 7.8 mg/dL (8.5-10.1); CREATININE 1.8 mg/dL (0.6-1.3); MAGNESIUM 1.9 mg/dL (1.8-2.4); PHOSPHORUS* 2.4 mg/dL (2.5-4.9)
[2017-10-18 12:29] LABS: POTASSIUM 2.4 mmol/L (3.5-5.1)
--- NOTE | 2017-10-18 14:40 | NUR ---
RECEIVED REPORT FROM RANJAN CRANE. ASSESSMENTS CHARTED. LOW GRADE TEMP. PT ON CRRT THIS MORNING. LINE CLOTTED OFF AROUND 1000. PHYSICAN ORDERED TO STOP. PT HAS RECEIVED TICC LINE YESTERDAY AND TEMP DIALYSIS CATHETER. VITALS STABLE. DR SWEENEY PLANS ON PLACING A TRACH TOMORROW. FAMILY IS AWARE AND UPDATED ON PLAN OF CARE.
[2017-10-19] VITALS (21 sets, daily range): BP systolic 121–1369; BP diastolic 54–69
[2017-10-19 04:54] LABS: ABSOLUTE BASOPHILS 0.1 thou/uL (0.0-0.2); ABSOLUTE EOSINOPHILS 0.2 thou/uL (0.0-0.7); ABSOLUTE LYMPHOCYTES 1.6 thou/uL (0.8-5.3); ABSOLUTE NEUTROPHILS 8.2 thou/uL (1.6-8.1); BASOPHILS 0.7 %; EOSINOPHILS 1.6 %; HEMATOCRIT 23.9 % (37.0-47.0); HEMOGLOBIN 7.9 gm/dL (12.0-15.0); LYMPHOCYTES 14.3 %; MCH 28.4 pg (26.0-34.0); MPV 9.5 fl. (7.2-11.1); NUCLEATED RBCS 0 /100WBC; PLATELET COUNT* 174 thou/uL (150-400); POLYS 74.4 %; RBC 2.78 mil/uL (4.20-5.00); RDW-CV 15.9 % (10.5-14.5); WBC 11.1 thou/uL (4.0-11.0)
[2017-10-19 05:04] LABS: PREALBUMIN 13.8 mg/dL (18.0-35.7)
[2017-10-19 05:16] LABS: ALBUMIN 2.6 g/dL (3.4-5.0); CALCIUM 7.8 mg/dL (8.5-10.1); CREATININE 1.9 mg/dL (0.6-1.3); POTASSIUM 3.3 mmol/L (3.5-5.1); TOTAL BILIRUBIN 1.2 mg/dL (<0.1-1.0); TOTAL PROTEIN 4.8 g/dL (6.4-8.2)
--- NOTE | 2017-10-19 07:50 | NUR ---
PATIENT PROGRESSING TOWARDS GOALS. AWAKE, ALERT ABLE TO FOLLOW COMMANDS. ABD MIDLINE INCISION CONTINUES TO HAVE MODERATE AMOUNT OF DRAINAGE. CHANGED PACKING 3X DURING SIFT. PT TEMP 100.3. WILL SEE IF WE CAN GET RECTAL TYLENOL ORDERD. REPLACING K+. PT HAS DENIED PAIN MEDICATION. FULL BED BATH GIVEN AND BED CHANGE. CONTINUOUS ORAL CARE AND Q2H TURNS. PLAN TO RECEIVE TRACH THIS A.M. URINARY DIVERSON CATH CONTINUES TO BE POSITIONAL OUTPUT 1000. TPN STARTED LAST NIGHT. BP, RR, HR WNL, NSR. WILL CONTINUE TO MONITOR CLOSELY.
[2017-10-19 08:20] LABS: BE 4.9 mmol/L (-2 to +3); PCO2 26.1 mmHg (35.0-45.0); PO2 67.3 mmHg (75.0-100.0)
[2017-10-19 08:21] LABS: pH 7.617 (7.340-7.450)
--- NOTE | 2017-10-19 09:33 | NUR ---
0730 ASSUMED CZARE OF PATIENT. PLEASE SEE DOCUMENTED ASSESSMENT. PT HAS SUBSTANTIAL URINE OUTPUT BUT MUC OF IT THROUGH STOMA OPENING. PLAN IS FOR TRACH TODAY
--- NOTE | 2017-10-19 10:54 | NUR ---
POTASSIUM REPLACEMENT STARTED. NEW VENT SETTINGS NOTED
[2017-10-19 11:59] LABS: URINE BILIRUBIN NEGATIVE (Negative); URINE BLOOD 2+ (Negative); URINE CLARITY CLEAR; URINE COLOR YELLOW; URINE GLUCOSE-RANDOM NEGATIVE (Negative); URINE KETONES NEGATIVE (Negative); URINE LEUKOCYTES NEGATIVE (Negative); URINE NITRITE NEGATIVE (Negative); URINE PROTEIN TRACE (Negative); URINE SPECIFIC GRAVITY 1.015 (1.005-1.030); URINE UROBILINOGEN 0.2 E.U./dl (0.2-1.0)
[2017-10-19 12:11] LABS: BACTERIA 1-9 Few /HPF (None Seen); CASTS None Seen /LPF (None Seen); CRYSTALS None Seen /LPF (None Seen); MUCUS 4-6 Moderate strn/LPF (None Seen); SQUAMOUS 0-3 Few /LPF (0-3); URINE RBC 3-10 Few /HPF (0-2); URINE WBC 6-15 Few /HPF (0-5)
--- NOTE | 2017-10-19 13:02 | NUR ---
TO OR PER BED. DR SWEENEY HERE AND CHANGED ABDOMINAL DRESSING. PT CONTINUES TO LEAK URINE FROM UROSTOMY SITE
--- NOTE | 2017-10-19 14:21 | NUR ---
1400 BACK FROM OR WITH #[address] RESTRAINTS OFF. PT INSTRUCTED NOT TO PULL ON LINES AND NODS IN AGREEMENT
--- NOTE | 2017-10-19 16:05 | NUR ---
DR GARCIA HERE TO SEE PATIENT. ORDERS NOTED. CONTINUES TO HAVE URINE LEAKAGE FROM UROSTOMY
--- NOTE | 2017-10-19 17:38 | NUR ---
PATIENT MAKING SOME PRGRESS TOWARDS GOALS. POTASSIUM CURRENTLY BEING REPLACED. TRACHESOSTOMY PLACED TODAY, OUT OF RESTRAINTS. ABDOMINAL DRESSING CHANGED OFTEN. INACCURATE URINE OUTPUT DUE TO ALMOST CONSTANT LEAKAGE OF URINE AROUND SITE IN SPITE OF NEW CAHTETER PER ORDER OF UROLOGY. PT HAS REFUSED PAIN MEDICATION .VSS. FAMILY HAS VISITED
--- NOTE | 2017-10-19 18:11 | NUR ---
DR SWEENEY HERE TO SEE PATIENT
[2017-10-19 21:37] LABS: BE 8.5 mmol/L (-2 to +3); HCO3 31.3 mmol/L (22.0-26.0); PCO2 35.8 mmHg (35.0-45.0); PO2 62.3 mmHg (75.0-100.0); pH 7.559 (7.340-7.450)
[2017-10-20] VITALS (21 sets, daily range): BP systolic 95–166; BP diastolic 52–93
[2017-10-20 04:40] LABS: ABSOLUTE BASOPHILS 0.1 thou/uL (0.0-0.2); ABSOLUTE EOSINOPHILS 0.1 thou/uL (0.0-0.7); ABSOLUTE LYMPHOCYTES 1.3 thou/uL (0.8-5.3); BASOPHILS 0.8 %; EOSINOPHILS 1.3 %; HEMATOCRIT 22.6 % (37.0-47.0); HEMOGLOBIN 7.5 gm/dL (12.0-15.0); MCH 28.6 pg (26.0-34.0); MCHC 33.2 g/dL (28.0-37.0); MCV 86.3 fL (80.0-100.0); MONOCYTES 10.4 %; MPV 9.7 fl. (7.2-11.1); NUCLEATED RBCS 0 /100WBC; PLATELET COUNT* 147 thou/uL (150-400); POLYS 73.5 %; RBC 2.62 mil/uL (4.20-5.00); RDW-CV 15.8 % (10.5-14.5); WBC 9.5 thou/uL (4.0-11.0)
[2017-10-20 05:06] LABS: ALBUMIN 2.8 g/dL (3.4-5.0); CALCIUM 7.9 mg/dL (8.5-10.1); CREATININE 1.8 mg/dL (0.6-1.3); MAGNESIUM 1.7 mg/dL (1.8-2.4); PHOSPHORUS* 2.5 mg/dL (2.5-4.9); POTASSIUM 3.3 mmol/L (3.5-5.1); TOTAL BILIRUBIN 1.1 mg/dL (<0.1-1.0)
--- NOTE | 2017-10-20 09:44 | PROC ---
[facility] [address] [place] [address] PROCEDURE REPORT Name: CLYDE BOB Room: [address] IN [facility]#: [id number] Admission: 10/01/17 Attend Phys: Pete Conteh Discharge: Date of : 44 Report #: [id number] THIS REPORT FOR: //name// CC: Pete Stevens DATE OF SERVICE: 10/19/2017 PREOPERATIVE DIAGNOSIS: Respiratory failure. POSTOPERATIVE DIAGNOSIS: Respiratory failure. OPERATION: Tracheostomy. SURGEON: Pete Conteh MD ANESTHESIA: General. ESTIMATED BLOOD LOSS: Minimal. DESCRIPTION OF PROCEDURE: After informed consent was obtained, the patient was brought to the operating room and placed supine. SCDs were placed and working, preoperative antibiotics were administered and general anesthesia was induced. The neck was prepped and draped in the usual sterile fashion. First, the patient's anatomical landmarks were identified. A transverse collar incision was made with a scalpel 2 fingerbreadths superior to the sternal notch. This was deepened through the platysma and small infraplatysmal flaps were raised superiorly and inferiorly. The median raphe of the strap muscles were identified. The anterior jugular veins were and retracted laterally. The trachea was then identified in the midline. Tracheal hook was then used to retract the trachea superiorly. The trachea was cleared of investing tissue. A trap door incision was made removing an approximately 2 of the rings at the level of the 2nd and 3rd rings. A #8 cuffed Shiley tracheostomy tube was then inserted smoothly. It was connected to the ventilator and there was end-tidal CO2 return. O2 saturations stayed above 90% at all times. The incisions were then closed with a 4-0 Monocryl. Trach ties were then applied. COMPLICATIONS: [place] [address] PROCEDURE REPORT Name: CLYDE BOB Room: [address]#: [id number] Admission: 10/01/17 Attend Phys: Pete Conteh Discharge: Date of : 44 Report #: [id number] DISPOSITION: The patient was taken back to the ICU in good condition. <ELECTRONICALLY SIGNED> By: Pete Conteh MD 10/20/17 0944 [id number] Conteh MD /nt
--- NOTE | 2017-10-20 10:14 | NUR ---
0700 ASSUMED CARE OF PATIENT. PATIENT IS IN RESPIRATORY DISTRESS WITH SUBCUTANEOUS EMPHYSEMA IN FACE AND UPPER CHEST. CALL TO ER PHYSICIAN . RT HERE. TRACH REMOVED AND PATIENT INTUBATED WITH 7.0 TUBE WITH RSI PROTOCOL. RECEIVED 20 MG OF ETOMIDATE IV,1OO MG SUCCINYLCHOLINE IV, AND 10 MG OF ROCURONIUM IV. VERSED AND FENTANYL DRIPS ORDERED AND STARTED. CALLS TO DR SWEENEY AND DR PETTY AND TO THE SPOUSE. SEE REASSESSMENT
--- NOTE | 2017-10-20 10:20 | NUR ---
0915 CHE[address] TUBE PLACED BY DR SWEENEY ON RIGHT SIDE. CONSENT FROM SPOUSE. CHEST TUBE TO 20 CM WATER SEAL. CHEST FILM DONE AND VIEWED BY DR KUMAR AND DR SWEENEY.
--- NOTE | 2017-10-20 10:21 | NUR ---
DAUGHTER CHANEL INFORMED ME PT IS DNR AND THAT DR SWEENEY WILL PUT IN THIS ORDER
--- NOTE | 2017-10-20 17:04 | NUR ---
GOALS HAVE CHANGED FOR THIS PATIENT. REINTUBATED EMERGENTLY THIS MORNING AND CHEST TUBE PLACED FOR PNEUMOTHORAX. FAMILY PRESENT AND SPOKE WITH PHYSICIANS. PATIENT IS NOW DNR STATUS. SEDATED ON FENTANYL AND VERSED DRIPS. REMAINS ON TPN. PLAN IS FOR FAMILY TO GATHER AND POSSIBLY EXTUBATE PATIENT IN THE MORNING
[2017-10-21] VITALS (11 sets, daily range): BP systolic 95–120; BP diastolic 46–70
[2017-10-21 04:19] LABS: HEMATOCRIT 27.9 % (37.0-47.0); HEMOGLOBIN 9.1 gm/dL (12.0-15.0); MCH 28.1 pg (26.0-34.0); MCHC 32.7 g/dL (28.0-37.0); MPV 10.1 fl. (7.2-11.1); RBC 3.25 mil/uL (4.20-5.00); RDW-CV 15.8 % (10.5-14.5); WBC 16.5 thou/uL (4.0-11.0)
[2017-10-21 04:39] LABS: ALBUMIN 2.4 g/dL (3.4-5.0); CALCIUM 8.3 mg/dL (8.5-10.1); CREATININE 2.7 mg/dL (0.6-1.3); TOTAL BILIRUBIN 1.8 mg/dL (<0.1-1.0); TOTAL PROTEIN 5.1 g/dL (6.4-8.2)
--- NOTE | 2017-10-21 06:35 | NUR ---
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
--- NOTE | 2017-10-21 07:52 | NUR ---
4339 ASSUMED CARE OF PATIENT. PLEASE SEE DOCUMENTED ASSESSMENT. DR DRUMMOND TO SEE PATIENT. ORDERS NOTED. WILL DISCUSS CARE PLAN WITH FAMILY
--- NOTE | 2017-10-21 09:25 | NUR ---
DR SWEENEY HERE TO SPEAK NWITH FAMILY OFF OF UNIT
--- NOTE | 2017-10-21 11:58 | NUR ---
1133 EXTUBATED AND MONITORS OFF. OG REMOVED. COMFORT CARE IN PLACE
--- NOTE | 2017-10-21 17:14 | NUR ---
GOALS HAVE CHANGED FOR THIS PATIENT. EXTUBATED TO 2LPM NASAL CANNULA AT 1133. MTN NOTIFIED OF IMMINENT . REMAINS ON FENTANYL DRIP AND COMFORT MEDS. DR DRUMMOND UPDATED ON PATIENT STATUS WELL ID AND PULMONARY. FAMILY PRESENC SUPPORTED.
[2017-10-22 04:50] VITALS: BP 114/47
--- NOTE | 2017-10-22 07:39 | NUR ---
PT IS COMFORT CARE ONLY, MULTIPLE FAMILY AT BEDSIDE THROUGHOUT THE NIGHT. FENTANYL GTT INFUSING AND PRN MORPHINE AND ATIVAN GIVEN ORDERED TO MAINTAIN ABSENCE OF AIR HUNGER. PTS FAMILY REQUESTED THAT PT NOT BE REPOSITIONED MINIMAL PHYSICAL MANIPULATION CAUSES DRAMATIC INCREASE IN AIR HUNGER. ALL TUBES REMAIN IN PLACE, ABDOMINAL AND CHEST TUBE DRESSINGS C/D/I. EMOTIONAL SUPPORT AND EXPLANATIONS RELATED TO END OF LIFE CARE PROVIDED TO FAMILY WHEN INDICATED.
[2017-10-22 08:00] VITALS: BP 91/41
--- NOTE | 2017-10-22 08:47 | NUR ---
AT BEDSIDE, MEDICATION GIVEN FOR AIR HUNGER. VITALS AND ASSESSMENT DONE AT THIS TIME. PATIENT REMAINS UNRESPONSIVE AT THIS TIME. FAMILY REFUSES TURNING THE PATIENT TO MINIMIZE PAIN AT THIS TIME. GOALS TO KEEP COMFORTABLE.
--- NOTE | 2017-10-22 09:11 | NUR ---
PATIENT IS NOW M/S TELE STATUS.
--- NOTE | 2017-10-22 11:00 | NUR ---
SPOKE WITH AT BEDSIDE, PROVIDED SUPPORT. HE SAID HE WENT HOME LAST NIGHT AND GOT SOME SLEEP. HIS DTR AND DTR-IN-LAW WILL BE BACK LATER TODAY AND HE WILL GO HOME THEN TO GET SOME REST. HE SAID PT SEEMS COMFORTABLE, HE KNOWS HE CAN LET THE NURSE KNOW IF SHE SEEMS TO GET RESTLESS OR HAVING TROUBLE BREATHING. HE SAID SHE WANTS TO BE CREMATED, 'MY DTR IS CHECKING OUT OPTIONS FOR THAT.' PROVIDED HIM WITH LIST OF HOMES/CREMATION OPTIONS. CASE MGT AND SPIRITUAL CARE REMAIN AVAILABLE TO ASSIST NEEDED.
--- NOTE | 2017-10-22 15:18 | NUR ---
ASSUMED CARE OF PATIENT APPEARS COMFORTABLE AT THIS TIME.
[2017-10-22 20:09] VITALS: BP 100/50
--- NOTE | 2017-10-23 05:35 | NUR ---
PATIENT IN COMFORT CARE. FENTANYL GTT @ 10ML/HR. PT EXPERIENCING LABORED BREATHING ADMINISTERING ATIVAN AND MORPHINE INTERCHANGEABLY. URINE OUTPUT OF 2100 ML. DAUGHTER STAYED THROUGHOUT THE NIGHT. NO FURTHER QUESTIONS AT THIS TIME. WILL CONTINUE TO KEEP PT COMFORTABLE.
[2017-10-23 06:02] VITALS: BP 95/40
[2017-10-23 07:46] VITALS: BP 94/40
--- NOTE | 2017-10-23 15:30 | NUR ---
SPOKE WITH SON ELLA AND DTR ARIELA IN THE WAITING ROOM. NOT HERE AT THIS TIME, HE HAS GONE HOME TO REST. DISCUSSED OPTIONS FOR CONTINUED COMFORT CARE INCLUDING STAYING HERE WITH INPATIENT HOSPICE, A HOSPICE HOUSE FOR INPATIENT HOSPICE, GOING HOME OR TO A FACILITY WITH HOSPICE. THEY DON'T FEEL THAT PT COULD GO HOME OR TO A FPC. THEY WILL TALK TO THEIR FATHER AND TO THEIR [id number] CHANEL WHO IS A NURSE PRACTIONER. THEY HAVE MY CARD, IF THEY HAVE FURTHER QUESTIONS.
[2017-10-23 20:00] VITALS: BP 92/42
--- NOTE | 2017-10-24 06:50 | NUR ---
PATIENT PRONOUNCED AT 0525. PRONOUNCED BY DANY GUSMAN AND ROSA MARIA MORALES RN. PT ASYSTOLE AT 0525. NO AUDIBLE HEART TONES OR PALPABLE PULSES. PT'S MAINOR NOTIFIED AT 0530. DR MORRISON NOTIFIED OF . DR REYES TO SIGN CERTIFICATE. ALL CONSULTED PHYSICANS NOTIFIED. ENGINEERING LABORATORY TECHNICIAN NOTIFIED. ADMINISTERED LAST RIGHTS. AND FAMILY ARRIVED AND LEFT. MEN NOTIFIED, REFERRAL NUMBER ON CHART. GORE SEAMER'S OFFICE NOTIFIED. CASE REPORTED BY DANY GUSMAN RN TO [facility]. CASE DECLINED. [facility] EN ROUTE TO SPICE ROOM WORKER BODY. SECURITY NOTIFIED, PT IN [facility].
== END 2017-10-24 09:25 | DRG 3 ==
LOC: M.TBA 06:12 → M.ICU 06:12 → M.PRE 09:09 → M.ICU 14:19
PROVIDERS: Family Medicine; Internal Medicine; Internal Medicine Critical Care Medicine; Internal Medicine Nephrology; Internal Medicine Pulmonary Disease; Specialist; ADMIT Surgery
PROC: 0DTF0ZZ Resection of Right Large Intestine, Open Approach (ICD-10-PCS; principal; 2017-10-01)
PROC: 0D1B0Z4 Bypass Ileum to Cutaneous, Open Approach (ICD-10-PCS; principal; 2017-10-01)
PROC: 0DJD8ZZ Inspection of Lower Intestinal Tract, Via Natural or Artificial Opening Endoscopic (ICD-10-PCS; principal; 2017-10-01)
PROC: 30233N1 Transfusion of Nonautologous Red Blood Cells into Peripheral Vein, Percutaneous Approach (ICD-10-PCS; principal; 2017-10-01)
PROC: 02HV33Z Insertion of Infusion Device into Superior Vena Cava, Percutaneous Approach (ICD-10-PCS; principal; 2017-10-01)
PROC: 0BH17EZ Insertion of Endotracheal Airway into Trachea, Via Natural or Artificial Opening (ICD-10-PCS; 2017-10-02)
PROC: 5A1955Z Respiratory Ventilation, Greater than 96 Consecutive Hours (ICD-10-PCS; 2017-10-02)
PROC: 0JH63XZ Insertion of Tunneled Vascular Access Device into Chest Subcutaneous Tissue and Fascia, Percutaneous Approach (ICD-10-PCS; 2017-10-17)
PROC: 02HV33Z Insertion of Infusion Device into Superior Vena Cava, Percutaneous Approach (ICD-10-PCS; 2017-10-17)
PROC: B5181ZA Fluoroscopy of Superior Vena Cava using Low Osmolar Contrast, Guidance (ICD-10-PCS; 2017-10-17)
PROC: 0B110F4 Bypass Trachea to Cutaneous with Tracheostomy Device, Open Approach (ICD-10-PCS; 2017-10-19)
PROC: 0W9930Z Drainage of Right Pleural Cavity with Drainage Device, Percutaneous Approach (ICD-10-PCS; 2017-10-20)
DX: K55.1 Chronic vascular disorders of intestine (principal); G93.40 Encephalopathy, unspecified; N17.0 Acute kidney failure with tubular necrosis; J96.01 Acute respiratory failure with hypoxia; A41.9 Sepsis, unspecified organism; J18.9 Pneumonia, unspecified organism; R65.20 Severe sepsis without septic shock; E43 Unspecified severe protein-calorie malnutrition; E87.0 Hyperosmolality and hypernatremia; E87.2 Acidosis; N39.0 Urinary tract infection, site not specified; B49 Unspecified mycosis; L02.211 Cutaneous abscess of abdominal wall; J93.9 Pneumothorax, unspecified; K63.89 Other specified diseases of intestine; R57.1 Hypovolemic shock; E87.8 Other disorders of electrolyte and fluid balance, not elsewhere classified; E83.39 Other disorders of phosphorus metabolism; E87.6 Hypokalemia; E83.42 Hypomagnesemia; I95.9 Hypotension, unspecified; D64.9 Anemia, unspecified; B96.5 Pseudomonas (aeruginosa) (mallei) (pseudomallei) as the cause of diseases classified elsewhere; B37.9 Candidiasis, unspecified; Z68.31 Body mass index [BMI] 31.0-31.9, adult; Z66 Do not resuscitate; Z51.5 Encounter for palliative care; J98.2 Interstitial emphysema